=== PATIENT | male | born 1945 | race Caucasian/White ===

== ENCOUNTER 2020-02-06 08:50 | Outpatient (CLI) | payer MEDICARE, SELFPAY ==
--- NOTE | 2020-02-06 09:03 | ECG_ITS ---
NAME OF STUDY: LEXISCAN SESTAMIBI STRESS TEST INDICATION: Shortness of Breath, PROCEDURE: At the baseline, the EKG revealed atrial fibrillation with a controlled ventricular response rate. Poor R wave progression. Possible old anteroseptal myocardial infarction. Nonspecific T wave changes. Possible old inferior wall myocardial infarction. The baseline blood pressure was 168/96 mm Hg with a heart rate of 82 beats/min. Lexiscan was infused over a period of 20 seconds. A total of 0.4 milligrams of Lexiscan was infused. The stress phase was continued for a total of 5 minutes. Heart rate at the end of the stress phase was 90 with a blood pressure 127/73. The EKG at the peak infusion revealed no significant changes. Sestamibi was injected 20 seconds after the Lexiscan infusion. Blood pressure at the end of the recovery phase was 135/85 with a heart rate of 77 per minute. CONCLUSION: 1. No significant EKG changes with the LexiScan infusion 2. No LexiScan induced chest pain or cardiac arrhythmia 3. Normal blood pressure and heart rate response 4. Sestamibi/sestamibi perfusion scan pending; see separate report. Electronically Signed On 02-07-2020 10:30:04 CDT by Calixto Puri M.D. [id number]
--- NOTE | 2020-02-06 09:03 | NMCV_ITS ---
NM denzel perf SPECT r/s* [id number] Willis Sehffield Age: 74 Gender: M : 1945 Exam Date: 02/06/2020 09:03 Ordering Phys: Calixto Puri MD ([email or web address]) Technologist: WOOD Mcadams Exam Location: [facility] Indications: SHORTNESS OF BREATH STRESS TEST Please see separate stress test report [facility] for full findings IMAGE PROTOCOL Rest/Stress 1 Lexiscan Day Radiopharmaceutical Dose (mCi) Administration Site Administered by Rest: Tc-99m 10.8 IV WOOD Abreu Sestamibi Stress:Tc-99m 32.5 IV WOOD Abreu Sestamibi Rest: 06-Feb-2020 60 Discovery 630 Stress: 06-Feb-2020 30 Discovery 630 0.4mg Lexiscan. Images obtained in supine and prone position. SPECT RESULTS Technical Quality: Excellent Raw Data Analysis: Normal Image Corrections: No attenuation or motion correction applied Summed Stress Score: 24 Summed Rest Score: 9 Summed Difference Score: 16 PERFUSION FINDINGS Moderate to large area of severely decreased tracer uptake in the basal mid and apical inferior mid and apical anterior mid anterolateral, mid inferolateral, apical lateral, apical septum and LV apex. Significant reversibility was noted in these regions FUNCTIONAL RESULTS (calculated via Gated SPECT) Stress Image LV EF (%): 42 Stress EDV (mL):151 TID: 1.04 Stress ESV (mL):88 FUNCTIONAL FINDINGS: Segmental wall motion analysis revealed diffuse hypokinesia of the septum, apex, mid and apical anterior wall regions. IMPRESSIONS 1. Myocardial perfusion imaging revealing moderate to large areas of reversible defect in the anterior, inferior, anterolateral and apical regions, suggestive of ischemia in the distribution of all the 3 coronary arteries. 2. Diminished LV ejection fraction of 42%. 3. Multiple wall motion normalities as mentioned above. 4. Mildly dilated LV cavity with an end-systolic volume of 88 mL. No similar previous studies are available for comparison Dr Calixto Puri MD FACC (Electronically Signed) Final Date: 06 Feb 2020 18:53 S
[2020-02-06 09:04] VITALS: BMI 28.3
[2020-02-06] MEDS: regadenoson 0.4 Mg/5 ml Syringe IVP (10:54)
[2020-02-06 11:08] VITALS: BP 135/85; PULSE 87
== END 2020-02-06 08:51 | disposition home or self-care (01) ==
LOC: RAD 08:54
PROVIDERS: PCP Internal Medicine; Visit Provider Internal Medicine Cardiovascular Disease
DX: R06.02 Shortness of breath (principal); R06.09 Other forms of dyspnea; R05 Cough
CPT/HCPCS: 71046; 78452; 93017; A9500; J2785

== ENCOUNTER 2020-02-06 08:55 | Outpatient (CLI) | payer MEDICARE, SELFPAY ==
--- NOTE | 2020-02-06 08:59 | XRR_ITS ---
PROCEDURE INFORMATION: Exam: XR Chest, 2 Views Exam date and time: 02/06/2020 9:29 AM Age: 74 years old Clinical indication: Cough, short of breath TECHNIQUE: Imaging protocol: XR of the chest Views: 2 views. COMPARISON: CR Chest 2 views* [id number] 10/29/2013 9:43 AM FINDINGS: Lungs: Calcified pulmonary granulomas present. No pneumonia or pulmonary edema. Pleural space: No pleural effusion. No pneumothorax. Heart/Mediastinum: The heart is not enlarged when allowing for a left epicardial fat pad. Mediastinal contours are within normal limits. There are calcified hilar and mediastinal lymph nodes from prior granulomatous disease. Bones/joints: There is an S-shaped curvature of the thoracolumbar spine associated with multilevel disc degeneration. Multilevel disc degeneration and facet arthropathy in the lower cervical spine. Bilateral glenohumeral joint degeneration. XR/XR chest 2V* [id number] IMPRESSION: 1. No pneumonia or pulmonary edema. 2. Prior granulomatous disease.
== END 2020-02-06 08:56 | disposition home or self-care (01) ==
LOC: RAD 08:57
PROVIDERS: PCP Internal Medicine; Visit Provider Internal Medicine
DX: R05 Cough (principal); R06.02 Shortness of breath
CPT/HCPCS: 71046

== ENCOUNTER 2020-02-11 15:25 | Outpatient (CLI) | payer MEDICARE, SELFPAY ==
--- NOTE | 2020-02-11 15:54 | USCV_ITS ---
Willis Sheffield Age: 74 Gender: M : 1945 Exam Date: 02/11/2020 16:02 Ordering Phys: Calixto Puri MD ([email or web address]) Technologist: Aubree Zuñiga [place] [facility] [place]ication: ABNORMAL STRESS TEST BP: / HR: 64 Rhythm: Sinus Technical Quality: MEASUREMENTS (Male / Female) Normal Values 2D ECHO LV Diastolic Diameter PLAX 4.2 cm 4.2 - 5.9 / 3.9 - 5.3 cm LV Systolic Diameter PLAX 2.2 cm LV Chamber Size 2.3 cm IVS Diastolic Thickness 1.3 cm 0.6 - 1.0 / 0.6 - 0.9 cm IVS Systolic Thickness 1.7 cm LVPW Diastolic Thickness 1.9 cm 0.6 - 1.0 / 0.6 - 0.9 cm LVPW Systolic Thickness 2.5 cm RV Chamber Size 3.4 cm LVOT Diameter 2.0 cm LV Ejection Fraction 2D Teich 78.5 % LV Ejection Fraction MOD 2C 76.3 % LV Ejection Fraction 2C AL 75.7 % LA Diameter 2.9 cm LA Width 3.4 cm LA Height 6.6 cm RA Width 4.2 cm RA Height 5.3 cm Aorta at Sinotubular Diameter 2.7 cm M-MODE LV Diastolic Diameter MM 6.2 cm 4.2 - 5.9 / 3.9 - 5.3 cm LV Systolic Diameter MM 3.4 cm LV Ejection Fraction MM Teich 75.7 % IVS Diastolic Thickness MM 0.7 cm 0.6 - 1.0 / 0.6 - 0.9 cm IVS Systolic Thickness MM 0.9 cm LVPW Diastolic Thickness MM 1.1 cm 0.6 - 1.0 / 0.6 - 0.9 cm LVPW Systolic Thickness MM 1.3 cm Aortic Annulus Diameter 3.4 cm LA Ao Ratio MM 0.8 MV E Point Septal Separation 1.4 cm DOPPLER AV Peak Velocity 154.0 cm/s LVOT Peak Velocity 113.0 cm/s AV Area Cont Eq vti 2.5 cm squared AV Area Cont Eq pk 2.4 cm squared MV Area PHT 2.8 cm squared Mitral E to A Ratio 2.7 MV E' Velocity 9.0 cm/s Mitral E to MV E' Ratio 14.5 Mitral E to LV E' Lateral Ratio 12.0 Mitral E to LV E' Septal Ratio 18.5 TR Peak Velocity 262.0 cm/s TR Peak Gradient 27.5 mmHg TR Mean Velocity 247.7 cm/s TR Mean Gradient 26.9 mmHg TR Velocity Time Integral 100.1 cm TV Peak E Velocity 50.0 cm/s Right Atrial Pressure 3.0 mmHg Pulmonary Artery Systolic Pressu 30.5 mmHg PV Peak Velocity 66.0 cm/s RV Acceleration Time 0.1 s RV Ejection Time 0.3 s RV AcT/ET 0.5 FINDINGS Left Ventricle Normal left ventricular size and systolic function, EF 67 %. Mild to moderate left ventricular hypertrophy. Right Ventricle Normal right ventricular size and systolic function. Right Atrium Upper limit of normal size Left Atrium Upper limit of normal size Mitral Valve Thickened mitral valve. Mild mitral annular calcification. Mild mitral valve regurgitation. Aortic Valve Thickened aortic valve. Xgfe-ks-lgldflqc aortic valve regurgitation. Tricuspid Valve Khby-jl-pnzgmavb tricuspid valve regurgitation. Estimated pulmonary artery peak systolic pressure of 31 mmHg Pulmonic Valve Pulmonic valve not well visualized. Pericardium Normal pericardium without effusion. Aorta Normal ascending aorta dimension. CONCLUSIONS Normal left ventricular size and systolic function, EF 67 %. Mild to moderate left ventricular hypertrophy. Thickened aortic and mitral valves Mild mitral annular calcification. Mild mitral valve regurgitation. Thickened aortic valve. Vmql-oi-rhhhwqkw aortic valve regurgitation. Frpg-th-uvlzfitt tricuspid valve regurgitation. Estimated pulmonary artery peak systolic pressure of 31 mmHg There is no pericardial effusion. There are no intracardiac masses. No previous study is available for comparison. Dr Calixto Puri MD FACC (Electronically Signed) Final Date: 11 Feb 2020 17:32 S
== END 2020-02-11 15:26 | disposition home or self-care (01) ==
LOC: RAD 15:28
PROVIDERS: PCP Internal Medicine; Visit Provider Internal Medicine Cardiovascular Disease
DX: R94.39 Abnormal result of other cardiovascular function study (principal); I08.3 Combined rheumatic disorders of mitral, aortic and tricuspid valves
CPT/HCPCS: 93306

== ENCOUNTER → 2020-03-09 09:13 | Outpatient (BNVA) | payer MEDICARE, SELFPAY | PROVIDERS: PCP Internal Medicine; Visit Provider Internal Medicine Cardiovascular Disease | DX: R06.09 Other forms of dyspnea (principal); R07.9 Chest pain, unspecified; R06.02 Shortness of breath; I35.0 Nonrheumatic aortic (valve) stenosis; Z79.01 Long term (current) use of anticoagulants; I25.10 Atherosclerotic heart disease of native coronary artery without angina pectoris; G47.33 Obstructive sleep apnea (adult) (pediatric); I10 Essential (primary) hypertension; E78.2 Mixed hyperlipidemia; I48.11 Longstanding persistent atrial fibrillation | CPT/HCPCS: 80053; 85025 ==

== ENCOUNTER 2020-03-11 11:06 | Outpatient (CLI) | payer MEDICARE, SELFPAY ==
[2020-03-10 08:44] VITALS: BMI 27.7
[2020-03-11] VITALS (17 sets, daily range): BP systolic 97–152; BP diastolic 62–101; PULSE 45–75; RESP 6–20; TEMP 36.6–36.8; O2SAT 94–98
[2020-03-11] MEDS: diphenhydrAMINE 50 mg Capsule PO (06:38)
--- NOTE | 2020-03-11 07:00 | XACV_ITS ---
Ht: 170 cm Wt: 80 kg BSA: 1.97 m2 Gender: Male : 1945 Any Known Allergies: Sulfa Exam Priority: Routine Procedure(s): Procedure Description: Diagnostic procedure Procedure Description: Coronary Angiography Diagnostic Cath Status: Elective Diagnostic Findings CX has 0% stenosis. RCA has 0% stenosis. LM to pLAD: Moderate 60% stenosis, KIA: 3 flow. mLAD: Severe 90% stenosis, KIA: 3 flow. 1st Diag: Severe 90% stenosis, KIA: 3 flow. Coronary angiography shows right dominance. The left main is a medium caliber vessel which was found to have an eccentric around 60% stenosis distally. There was moderate to heavy calcification in this region. The left anterior descending artery is a medium caliber vessel which was found to have moderate to severe disease in the proximal to mid segment. Right after the first septal oil dispatcher, there was a high-grade 95% lesion in the artery. The first diagonal branch also was found to have a high-grade, around 95% lesion proximally. The first septal oil dispatcher has a high-grade ostial stenosis. The is circumflex artery is a medium caliber vessel which also was found to have around 60% ostial narrowing. The first obtuse marginal artery was found to have mild to moderate diffuse disease. The AV groove branch was found to have mild to moderate diffuse disease. The artery gives off a recurrent atrial branch proximally which also was found to have mild to moderate diffuse disease. Grade 2 dphz-js-ajvgd collaterals were noted filling up of the PDA and the PLV branch of the right coronary artery. The intermedius artery was found to be a small caliber vessel with moderate to severe ostial narrowing. The right coronary artery is a medium caliber vessel which is chronically occluded at the ostium. Heavy calcification was noted in the proximal segment of this artery. Conclusions There is severe coronary artery disease with two vessel disease. This is a 74-year-old white male with a history of coronary disease, high blood pressure, dyslipidemia and chronic atrial fibrillation, presenting with increasing shortness of breath. He had a myocardial bridge imaging, which revealed moderate to large areas of reversible defect in the anterior, inferior, anterolateral and apical regions, suggestive of three-vessel coronary disease. His LV ejection fraction based on the nuclear scan was 42%. Based on the echocardiogram, the left ventricular ejection fraction was around 67%. For further evaluation of his coronary status, cardiac catheterization was recommended. Patient underwent left catheterization with a left and right coronary angiogram today. The findings are as follows. Patient has a 60% eccentric distal left main disease. The lesion appears to involve the ostium of the LAD and the circumflex artery. There was a high-grade eccentric stenosis of around 90%, in the LAD, right after the first septal oil dispatcher. The first diagonal branch also was found to have a high-grade lesion proximally of around 90%. The right coronary artery appeared to be chronically occluded at the ostium. Mild to moderate diffuse disease was noted in the other vessels. Heavy calcification was noted in the proximal segments of all the arteries. LV gram was not performed because of technical difficulties. Based on the above angiographic findings, a surgical revascularization was thought to be the appropriate treatment option. This will be discussed the patient and family in detail and the final decision will be made afterwards. Patient is transferred to medical floor in stable condition. Recommendations Continue current medical management and risk factor modification. Diagnostic RX Recommendation: CABG Pressures Phase:Rest AO : 89 mmHg / 57 mmHg ( 67 mmHg ) @ 2:58:00 AM 75 mmHg / 55 mmHg ( 65 mmHg ) @ 3:01:00 AM 100 mmHg / 81 mmHg ( 85 mmHg ) @ 3:05:00 AM Clinical Evaluation EBL: 5mL-10mL Procedural Details Procedure Consent Obtained. Current Diagnosis : Chest Pain. Pre-Procedure Time Out. Identified patient by full name and date of as verbalized by the patient/guarantor. Does the consent match the physician's order: Yes. Accurate & Complete Informed Consent: Yes. Inpatient/Outpatient History & Physical on Chart: Yes. Visualize and Verify Site with Patient/Guarantor: N/A. Relevant Radiology Images available: Yes. Pre-op teaching completed and patient verbalized understanding. The risks, benefits, and alternatives of sedation and/or procedure were discussed by physician. The patient agrees to continue. Procedure started. [facility] Clinical Fraility Score: 3: Managing Well. Electro Optical Engineer Indications: New Onset Angina. Chest Pain Symptom Assessment: Typical Angina Symptoms. Correct patient, site and procedure confirmed by cath team. Current diagnosis: Chest Pain. PERRLA. 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 Lungs clear x 5 lobes. IV Site on Arrival: 18 gauge in the left forearm. IV Fluids: 0.9% NaCl at KVO. 0 mL infused prior to director of cardiac cath lab. Pre Procedural Pulses: bilateral dorsalis pedis was 3+. Pre Procedural Pulses: bilateral posterior tibial was 3+. Pre Procedural Pulses: bilateral radial was 3+. Oxygen started at 2liters/min via nasal canula. right groin was prepped with chloroprep then draped in the usual sterile fashion. right radial was prepped with chloroprep then draped in the usual sterile fashion. Physician notified. Baseline sample Acquired. HR: 65 BPM. Patient's family unavailable. Physician arrived. Physician scrubbed in. Immediate Pre-Procedure Time Out. Correct Patient: Yes; Correct Procedure: Yes; Correct Site: Yes; Correct Patient Position: Yes; Correct Supplies: Yes; Dried Flammable Prep: Yes; Blood Products Available: N/A;. Lidocaine 1% infiltrated to the right radial. Arterial access obtained. A 5 bulgarian Peter catheter in over wire. wire out. hand injection performed through the catheter. Inventory is TR Glidewire Angled Stiff Shaft .035 260cm. glidewire inserted through the catheter. Catheter removed over the exchange wire. A 5 bulgarian TIG catheter in over wire. Multiple views taken of left coronary artery. Catheter redirected to the RCA. Catheter removed over the exchange wire. A 5 bulgarian JR4 catheter in over wire. Catheter removed over the exchange wire. A 5 bulgarian Angled Pig catheter in over wire. Dr. Rodas called to review films. He is unavailable to come at this time. Physician review of cine films. Catheter removed over the exchange wire. A 5 bulgarian MPA2 catheter in over wire. Catheter removed over the exchange wire. Physician scrubbed out. Physician review of cine films. TR band placed. Hemostasis obtained. A TR Band was successful obtaining hemostatsis at the Right Radial artery insertion site. Post Procedure: Pulses reassessed and unchanged. PERRLA. 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 No VTE prophylaxis required. Medication's Wasted: Lidocaine 1% = 18 mL. Medication's Wasted: Nitro = 49.8 mcg. Medication's Wasted: Heparin = 5000 units. Total IV fluids: 350 mL. Contrast type used: Visipaque 320 mgI/mL, 500 mL bottle. Post-op diagnosis: Multi Vessel CAD. Complications: None. Estimated blood loss: 5mL-10mL. Procedure completed. Patient transferred by wheelchair to CPRU. Vital chart was stopped. Site: Right Radial artery Sheath Size: 6 Fr Hemostasis Method: TR Band Hemostasis Success: Successful Procedure Medications Start: 7:39 AM Stop: 7:39 AM Medication: Versed Amount: 1 mg Route: I.V. Start: 7:39 AM Stop: 7:39 AM Medication: Fentanyl Amount: 50 mcg Route: I.V. Start: 7:47 AM Stop: 7:47 AM Medication: Verapamil Amount: 5 mg Route: I.A. Start: 7:48 AM Stop: 7:48 AM Medication: Nitrogylcerin Amount: 200 mcg Route: I.A. Start: 7:48 AM Stop: 7:48 AM Medication: 0.9% Saline Amount: 250 ml Route: I.V. bolus Start: 7:59 AM Stop: 7:59 AM Medication: Heparin Amount: 5000 units Route: I.V. Start: 8:10 AM Stop: 8:10 AM Medication: Versed Amount: 1 mg Route: I.V. Start: 8:10 AM Stop: 8:10 AM Medication: Fentanyl Amount: 50 mcg Route: I.V. I, the attending physician, have reviewed and verified all procedure medications. Yes, all medications given per verbal order History/Risk Factors Hypertension: Yes Dyslipidemia: Yes Peripheral Arterial Disease (PAD): No Myocardial Infarction (IN): No Obesity: No Renal Disease: No Tobacco Use: Former Prior Interventions PCI: Yes CABG: No Valve Surgery: No Date of PCI: 02/18/2008 Report Signatures Finalized by:Dr Calixto Puri MD [facility] on 03/11/2020 9:05:15 AM
[2020-03-11 07:16] LABS: INR 1.33 (0.8-1.2)
--- NOTE | 2020-03-11 07:38 | W.PM.OPSUD ---
Surgery/Procedure H&P Update DATE OF PROCEDURE: March 11, 2020 DATE H&P PERFORMED: 02/11/20 H&P UPDATE INFORMATION: I have reviewed H&P completed within last 30 days, I have examined patient prior to procedure and No changes to prior documentation PREOP DIAGNOSIS: ASHD PLANNED PROCEDURE: Operation Date: 03/11/20 07:00 Proposed Procedures p Cardiac Catheterization(Left) - Calixto Puri MD PATIENT REASSESSED PRIOR TO SEDATION, WITH NO CHANGE NOTED: Yes PHYSICAL EXAM: alert, oriented x 3, clear to auscultation bilaterally and regular rate & rhythm AIRWAY EVAL/ANESTHESIA PLAN: normal airway, see other exam findings, ASA III, Risks, benefits & alternatives of sedation and/or procedure discussed and Patient agrees to continue as planned
--- NOTE | 2020-03-11 10:20 | PC.NURSE ---
Addendum entered by Samia Healy RN 03/11/20 10:43: Punctured site is covered with 2x2 gauze and band-aid. No Bleeding or Hematoma noted. Original Note: TR Band Removal All air is out in the TR Band. No Hematoma, swelling or bleeding noted. Radial pulse is palpable +3 on right wrist. Activity restrictions discuss to pt. Neurovascular checks monitored. VS stable and monitored.
--- NOTE | 2020-03-11 11:00 | PC.NURSE ---
Home med Pt stated he takes Hydralazine 1 and 1/2 tablet in the morning and 1 and 1/2 tablet in the evening. Pt verbalizes, Dr Puri has instructed me to take it that way. I am not able to take it in the afternoon so it made it that way. Pt stated he also takes metamucil and atorvastatin in the evening.
--- NOTE | 2020-03-11 12:00 | PC.NURSE ---
Pt password: [email or web address] Pt stated, we can release information to Katarzyna Sheffield( dgtr in law) and his only son Vignesh Sheffield.
--- NOTE | 2020-03-11 16:00 | PC.NURSE ---
Physician Rounding Dr. Watts at pt's bedside. Discuss to pt regarding the recommendation for CABG. Provided him with educational materials regarding open heart surgery and bypass. Informed pt on outpatient follow-up within this week or next week with pt's family members presence. Pt verbalizes understanding of the plan. Would like to be discharge today. Dr. Watts verbal order to inform Dr Puri that he can be discharge today and will follow-up with the pt as an outpatient. Dr Puri called via telephone and notified of the surgeon's visit with the patient.
--- NOTE | 2020-03-11 17:33 | PM.PN ---
Subjective Subjective: Interval history: Patient underwent a left heart catheterization with a left and right coronary angiogram today. He was found to have high-grade lesion of the left main, left and descending artery, first diagonal and moderate disease in the ostium of the circumflex artery. The right coronary artery was found to be totally occluded, chronic. Medications: Reviewed: Yes Medication Review Details: Current Medications Acetaminophen (Tylenol) 650 mg PO Q6H PRN PRN Reason: MILD PAIN Al Hydrox/Mg Hydrox/Simethicone (Maalox) 30 ml PO Q15M PRN PRN Reason: INDIGESTION Alprazolam (Xanax) 0.25 mg PO TID PRN PRN Reason: ANXIETY Atorvastatin Calcium (Lipitor) 20 mg PO DAILY [facility] Atropine Sulfate (Atropine) 0.5 mg IVP PRN PRN PRN Reason: Symptomatic bradycardia Digoxin (Lanoxin) 125 mcg PO DAILY [facility] Last Admin: 03/11/20 12:07 Dose: Not Given Documented by: Fentanyl (Sublimaze) 50 mcg IVP PRN PRN PRN Reason: Prior to sheath removal Hydralazine HCl (Apresoline) 50 mg PO TID [facility] Last Admin: 03/11/20 12:07 Dose: Not Given Documented by: Sodium Chloride (Sodium Chloride 0.9%) 1,000 mls @ 50 mls/hr IV .Q20H ONE Stop: 03/12/20 01:59 Last Admin: 03/11/20 06:38 Dose: Not Given Documented by: Losartan Potassium (Cozaar) 100 mg PO DAILY [facility] Last Admin: 03/11/20 11:55 Dose: Not Given Documented by: Magnesium Hydroxide (Milk Of Magnesia) 30 ml PO DAILY PRN PRN Reason: CONSTIPATION Naloxone HCl (Narcan) 0.1 mg IVP Q2M PRN PRN Reason: RESPIRATORY RATE < 8/MIN Nitroglycerin (Nitrostat) 0.4 mg SUBLINGUAL Q5M PRN PRN Reason: Chest Pain Non-Formulary Medication (Isosorbide Mononitrate) 120 mg PO DAILY [facility] Last Admin: 03/11/20 11:55 Dose: Not Given Documented by: Non-Formulary Medication (Psyllium Husk [Metamucil]) 2 tbsp PO DAILY [facility] Temazepam (Restoril) 15 mg PO BEDTIME PRN PRN Reason: INSOMNIA Vitals/I&O/Wt Last Vital Signs Temp 98.3 F 03/11/20 08:45 Pulse 51 L 03/11/20 10:45 Resp 9 L 03/11/20 10:45 BP 138/71 03/11/20 10:45 Pulse Ox 98 03/11/20 10:45 03/11/20 03/11/20 03/11/20 06:59 14:59 22:59 Intake Total 720 / 720 Output Total 300 / 300 Balance 420 / 420 Weight last 48 hrs Weight 177 lb Physical Exam Narrative: EXAM NARRATIVE: GENERAL: The patient is alert and oriented times three. Not in any acute distress. HEENT: No significant pallor, icterus or lymphadenopathy.Oral cavity: There are no mucous membrane lesions. NECK: Trachea appears to be central. No masses noted. No JVD or thyromegaly appreciated. RESPIRATORY: Chest is symmetrical. No intercostals muscle retraction or any accessory muscle activation. There is no chest wall tenderness. Breath sounds are heard bilaterally. No rales or rhonchi heard. No evidence of any consolidation. BREASTS: Deferred. HEART: The heart sounds are normal. No S3 or S4. Short systolic murmur at the base of the heart. No pericardial rub ABDOMEN: No vessel pulsations or distention. No tenderness. No organomegaly appreciated. Bowel sounds are normally heard. : Deferred. RECTAL: Deferred. LYMPHATIC: No lymphadenopathy noted in the neck or groin. EXTREMITIES: Right radial artery entry site has no hematoma or bleeding. MUSCULOSKELETAL: No acute joint deformities or swelling SKIN: There are no significant rashes or ecchymosis NEUROPSYCHIATRIC: The patient is alert and oriented x3. Appears to be in a good mood. No tremors or rigidity noted. Data Other Labs: Laboratory Last Values PT 16.90 SECONDS (10.5-13.3) H 03/11/20 06:35 INR 1.33 (0.8-1.2) H 03/11/20 06:35 A&P Assessment and plan (1) ASHD (arteriosclerotic heart disease): I reviewed and discussed the cardiac medicine data with Dr. Rodas. For further management of his condition, he requires a surgical revascularization. This was discussed with the patient and his family(daughter). Dr. Rodas is going to make arrangements for him to be seen in his office where he will be discussing in detail with the patient and family about the surgery-risk and benefits. A final decision will be made at that time. Since the patient remained stable with no chest pain, it was thought to be appropriate to discharging home today. Status: Acute (2) Hypertension: Currently normotensive. Continue on the current medication. Status: Acute Qualifiers: Hypertension type: essential hypertension Qualified Code(s): I10 - Essential (primary) hypertension (3) Hyperlipidemia: Continue on the current medications. Status: Acute Qualifiers: Hyperlipidemia type: mixed hyperlipidemia Qualified Code(s): E78.2 - Mixed hyperlipidemia (4) Atrial fibrillation: After discussions with Dr. Rodas, it was decided to put him back on the Coumadin. He will have a repeat INR next Monday. The dose of the medication will be adjusted accordingly. Status: Acute Qualifiers: Atrial fibrillation type: longstanding persistent Qualified Code(s): I48.11 - Longstanding persistent atrial fibrillation Additional A&P Information In the event of the patient developing any chest pain, unusual shortness of breath or any new symptoms, advised to contact our office. Dr. Rodas's office will be making the arrangements for him to be seen in the office next week. Attestations Medical Necessity Statement*: Discharge home today Coding Level of Care Code Acute Neuropsychology Service Director for [facility] Fwd Diagnoses ASHD (arteriosclerotic heart disease) I25.10 Hypertension I10 Hypertension type: essential hypertension Hyperlipidemia E78.2 Hyperlipidemia type: mixed hyperlipidemia Atrial fibrillation I48.11 Atrial fibrillation type: longstanding persistent
--- NOTE | 2020-03-11 19:32 | PC.NURSE ---
Discharge to home with family Instructed pt and dgtr in law Colón on his follow-up appointment with Dr Watts next . Educated pt on CABG pre-procedure diagnostic testing and what to expect before, during and after the surgery. Pt verbalizes understanding. Pt teaches back that that he will start his Coumadin tomorrow. He said, Dr Puri told me I have to restart the coumadin tomorrow. I will take the 6 mg tomorrow then the 5 mg as directed. Discharge packets and heart surgery educational materials provided to pt.
== END 2020-03-11 18:00 | disposition home or self-care (01) | DRG 68 ==
LOC: CSU 17:18 → OPCSU 03-12 06:18
PROVIDERS: PCP Internal Medicine; Visit Provider Internal Medicine Cardiovascular Disease
DX: I25.10 Atherosclerotic heart disease of native coronary artery without angina pectoris (principal); I65.21 Occlusion and stenosis of right carotid artery; I48.11 Longstanding persistent atrial fibrillation; E78.5 Hyperlipidemia, unspecified; I10 Essential (primary) hypertension; E78.2 Mixed hyperlipidemia; I48.20 Chronic atrial fibrillation, unspecified; Z87.891 Personal history of nicotine dependence
CPT/HCPCS: 12345; 36415; 85610; 93454; C1769; C1887; C1894; J1644; J2001; J2250; J3010; J3490; J7030; Q0163; Q9967

== ENCOUNTER 2020-04-08 05:00 | Inpatient (IN) | payer MEDICARE, SELFPAY ==
[2020-04-01 10:50] LABS: Basophils % 0.5 %; Eosinophils # 0.1 10^3/uL (0.0-0.8); Eosinophils % 1.3 %; Hematocrit 45.5 % (42.0-52.0); Hemoglobin 14.5 g/dL (11.7-16.6); Lymphocytes % 16.4 %; Mean Corpuscular HGB Conc 31.9 g/dL (30.0-36.0); Mean Corpuscular Hemoglobin 28.7 pg (28.0-34.0); Mean Corpuscular Volume 90.1 fL (80-94); Mean Platelet Volume 9.8 fL (7.4-10.4); Monocytes # 0.5 10^3/uL (0.2-0.9); Monocytes % 8.5 %; Neutrophils # 4.46 10^3/uL (1.8-7.7); Neutrophils % 73.1 %; Nucleated Red Blood Cells % 0 %; Platelet Count 237 10^3/cmm (130-400); Red Blood Count 5.05 10^6/uL (4.1-5.3); Red Cell Distribution Width 14.4 % (12.1-15.1); White Blood Count 6.1 10^3/uL (4.0-10.0)
[2020-04-01 10:59] LABS: INR 1.94 (0.8-1.2)
--- NOTE | 2020-04-01 11:00 | USCV_ITS ---
Willis Sheffield Age: 74 Gender: M : 1945 Exam Date: 04/01/2020 11:26 Ordering Phys: Joseph Rodas MD (Andy) ([email or web address]) Technologist: Dewayne Salinas [place]am Location[place] [facility] [place]ication: CABG RIGHT LEFT LOWER EXTREMITY Diameter Diameter (cm) (cm) 0.43 High Thigh 0.42 0.33 Mid Thigh 0.34 0.22 Above Knee 0.29 0.37 Below Knee 0.28 0.37 Mid Calf 0.39 0.26 Ankle 0.28 RIGHT LEFT Findings SMALL VEINS OLD THROMBUS ON RT GOOD VEINS ON LT Contrast material was noted in the right greater saphenous vein Conclusions 1. 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 Patent greater saphenous vein on the left side with relatively small caliber 3. The venous dimensions are as mentioned above Dr Calixto Puri MD FACC (Electronically Signed) Final Date: 02 April 2020 09:06 S
[2020-04-01 11:10] LABS: Add Urine Microscopic? NO
[2020-04-01 11:13] LABS: Bilirubin Urine Neg (NEGATIVE); Blood Urine Neg (Negative); Glucose Urine UA Norm (Normal); Ketones Urine Negative (Negative); Nitrate Urine Negative (Negative); Protein Urine Neg (Negative); Specific Gravity, Urine 1.015 (1.005-1.030); Urine Appearance Clear (CLEAR); Urine Color Yellow (Yellow); pH Urine 6.5 (5-7)
[2020-04-01 11:14] LABS: Leukocyte Esterase Urine Negative (Negative); Urobilinogen Urine Norm (Negative)
[2020-04-01 11:17] LABS: Alanine Aminotransferase 13 U/L (0-41); Alkaline Phosphatase 76 IU/L (40-130); Anion Gap 16.2 (5-19); Aspartate Amino Transferase 14 U/L (0-40); Blood Urea Nitrogen 23 mg/dL (8-23); Calcium 8.5 mg/dL (8.5-10.5); Carbon Dioxide 21 mmol/L (22-29); Chloride 103 mmol/L (98-107); Globulin 2.8 g/dL (1.3-4.6); Glucose 101 mg/dL (65-115); Osmolality Calculated 279 mOsm/kg (285-295); Potassium 4.2 mmol/L (3.5-5.1); Sodium 136 mmol/L (136-145); Thyroid Stimulating Hormone 3.77 uIU/mL (0.27-4.20); Total Bilirubin 0.6 mg/dL (0.15-1.2); Total Protein 6.8 g/dL (6.6-8.7)
[2020-04-01 11:53] LABS: Free T4 Free Thyroxine 1.11 ng/dL (0.82-1.77)
--- NOTE | 2020-04-01 12:26 | P.ANESASSM_ITS ---
Pre-Anesthetic Assessment Pre-Anesthetic Assessment: Height/Weight: Height 1.73 m Weight 80.286 kg Preop Diagnosis: Coronary artery disease Proposed Procedure: Operation Date: 04/06/20 07:00 Proposed Procedures p CABG(Not Applicable) - Joseph Rodas MD Was Beta Mark taken within 24 hours: N/A Social: Social History: No alcohol and No tobacco Exam: Pre-Anes Outpt Exam: alert, oriented x 3, clear to auscultation bilaterally and regular rate & rhythm Airway: MP: 2 Dentition: Full Pulmonary: Pulmonary: None reported CV/HEM: CV/HEM: CAD, HTN and [place] (3 Vessel CAD) : : None reported Hepatic: Hepatic: None reported GI: GI: GERD Metabolic: Metabolic: None reported Musc/skel: Musc/skel: OA/DJD Neuropsych: Neuropsych: None reported Anesthetic Plan: ASA status: 4 Anesthesia: General Other: Discussed Invasive hemodynamic monitoring including Arterial Catheter, Pulmonary Artery Catheter, and central venous access. Disc post op vent at length. PFSH Anesthesia PFSH: Medical History (Updated 03/12/20 @ 17:02 by Joseph Rodas MD) Arrhythmia ASHD (arteriosclerotic heart disease) Atrial fibrillation LIND (dyspnea on exertion) GERD (gastroesophageal reflux disease) Hyperlipidemia Hypertension Sleep apnea Pt stopped using the CPAP many years ago Surgical History H/O Spinal surgery S/P hip replacement Family History Other CAD (coronary artery disease) Stroke Social History Smoking and tobacco status: former smoker Alcohol intake: never Data Anesthesia CBC & Chem 7: 04/01/20 10:30 04/01/20 10:30 Other Labs: Laboratory Results - last 48 hr 04/01/20 04/01/20 04/01/20 10:30 10:30 10:30 WBC 6.1 RBC 5.05 Hgb 14.5 Hct 45.5 MCV 90.1 MCH 28.7 MCHC 31.9 RDW 14.4 Plt Count 237 MPV 9.8 Neut % (Auto) 73.1 Lymph % (Auto) 16.4 Cedar % (Auto) 8.5 Eos % (Auto) 1.3 Baso % (Auto) 0.5 Neut # (Auto) 4.46 Lymph # (Auto) 1.0 Cedar # (Auto) 0.5 Eos # (Auto) 0.1 Baso # (Auto) 0.0 Nucleated RBC % (auto) 0 Nucleated RBCs # 0.0 PT 22.90 H INR 1.94 H APTT 35.0 Sodium Potassium Chloride Carbon Dioxide Anion Gap BUN Creatinine Glucose Calculated Osmolality Calcium Total Bilirubin Direct Bilirubin AST ALT Alkaline Phosphatase Total Protein Albumin Globulin TSH Free T4 Urine Color Urine Appearance Urine pH Ur Specific [place] Urine Protein Urine Glucose (UA) Urine Ketones Urine Blood Urine Nitrate Urine Bilirubin Urine Urobilinogen Ur Leukocyte Esterase Blood Type O Negative Rho(D) Type Negative Antibody Screen Negative 04/01/20 04/01/20 10:30 11:00 WBC RBC Hgb Hct MCV MCH MCHC RDW Plt Count MPV Neut % (Auto) Lymph % (Auto) Cedar % (Auto) Eos % (Auto) Baso % (Auto) Neut # (Auto) Lymph # (Auto) Cedar # (Auto) Eos # (Auto) Baso # (Auto) Nucleated RBC % (auto) Nucleated RBCs # PT INR APTT Sodium 136 Potassium 4.2 Chloride 103 Carbon Dioxide 21 L Anion Gap 16.2 BUN 23 Creatinine 0.9 Glucose 101 Calculated Osmolality 279 L Calcium 8.5 Total Bilirubin 0.6 Direct Bilirubin 0.20 AST 14 ALT 13 Alkaline Phosphatase 76 Total Protein 6.8 Albumin 4.0 Globulin 2.8 TSH 3.77 Free T4 1.11 Urine Color Yellow Urine Appearance Clear Urine pH 6.5 Ur Specific [place] 1.015 Urine Protein Neg Urine Glucose (UA) Norm Urine Ketones Negative Urine Blood Neg Urine Nitrate Negative Urine Bilirubin Neg Urine Urobilinogen Norm Ur Leukocyte Esterase Negative Blood Type Rho(D) Type Antibody Screen Cardiac Studies: No Data to Display
[2020-04-02 20:05] LABS: Quest SARS-CoV-2 RNA NOT DETECTED (NOT DETECTED)
[2020-04-08] VITALS (54 sets, daily range): BP systolic 90–133; BP diastolic 30–74; PULSE 0–96; RESP 12–18; TEMP 35.8–36.9; O2SAT 97–100; BMI 26.9
[2020-04-08 05:28] LABS: Glucose Point of Care 88 mg/dL (70-110)
--- NOTE | 2020-04-08 06:01 | P.HPUD_ITS ---
Surgery/Procedure H&P Update DATE OF PROCEDURE: April 08, 2020 DATE H&P PERFORMED: 03/12/20 H&P UPDATE INFORMATION: I have reviewed H&P completed within last 30 days, I have examined patient prior to procedure and No changes to prior documentation CHANGES TO PREVIOUS DOCUMENTATION: Last warfarin dose was last April 02. Results of saphenous vein mapping are noted. We will be prepared for left radial artery harvesting if left saphenous vein is not felt to be of adequate size or quality to utilize for grafting. This was discussed with Mr. Sheffield and his [id number]. All questions concerning surgery were again carefully rev iewed and answered. Mr. Sheffield and his family are eager to proceed. PREOP DIAGNOSIS: Coronary artery disease PRIMARY INDICATION FOR PROCEDURE: Severe coronary artery disease with distal left main stenosis. Surgical revascularization has been requested by cardiology. PLANNED PROCEDURE: Operation Date: 04/08/20 07:00 Proposed Procedures p CABG(Not Applicable) - Joseph Rodas MD
[2020-04-08] MEDS: vancomycin 1,000 MG in sodium chloride 0.9% 250 ML 250 MG IV ×2 (06:26→07:00)
[2020-04-08] MEDS: heparin 5,000 unit/mL INJ 1 mL 5000 UNIT (08:53)
--- NOTE | 2020-04-08 09:04 | SUR.OPER ---
0840 PT FAMILY (LILY) NOTIFIED OF SURGERY START AND PT CONDITION
--- NOTE | 2020-04-08 10:09 | SUR.OPER ---
1009 PT ON BYPASS, ICU AND FAMILY NOTIFIED.
[2020-04-08] MEDS: sodium bicarbonate 1 mEq/mL SDV 50mL 0.7 MEQ IRRIGATION (11:01)
[2020-04-08] MEDS: heparin, porcine 1,000 unit/mL INJ 10 mL 1750 UNIT IRRIGATION (11:02)
--- NOTE | 2020-04-08 12:34 | SUR.OPER ---
1205 PT OFF BYPASS, ICU AND FAMILY NOTIFIED.
--- NOTE | 2020-04-08 13:04 | XRR_ITS ---
PROCEDURE INFORMATION: Exam: XR Chest, 1 View Exam date and time: 04/08/2020 1:50 PM Age: 74 years old Clinical indication: Condition or disease; Prior surgery; Surgery date: Post-operative (0-2 days); Surgery type: Cabg today; Additional info: Post op heart, will call when ready TECHNIQUE: Imaging protocol: XR of the chest Views: 1 view. COMPARISON: CR XR chest 2V* [id number] 02/06/2020 9:22 AM FINDINGS: Tubes, catheters and devices: Endotracheal tube is in place the tip is 22 mm above the bertha. A right side [place] catheter is in place extending to the right pulmonary artery. A central line is in place on the right side extending into the SVC. Lungs: The lungs are low in volume but appear clear A chest tube is present extending into the left lung apex. This finding is new since prior examination. Pleural space: Unremarkable. No pleural effusion. No pneumothorax. Heart/Mediastinum: There is cardiomegaly for projection. Bones/joints: Metallic sternotomy wires are present. XR/XR chest 1V portable [id number] IMPRESSION: 1. Cardiomegaly for projection. 2. [place]-Carol[place] catheter right side in pulmonary artery 3. Central line right side in the SVC 4. Endotracheal tube in place above the betrha 5. Left chest tube extending to the left lung apex 6. Status post sternotomy
[2020-04-08] MEDS: cefUROXime 1,500 MG in sodium chloride 0.9% (plus) 50 ML 100 MG IV (13:12)
--- NOTE | 2020-04-08 14:02 | ECG_ITS ---
[facility] Test Date: 2020-04-08 Pat Name: Willis Sheffield Department: Room: ICU11 Gender: Male Collar [employer] Creaser: : 1945 Requested By: Joseph Rodas Order Number: [id number] Mariely MD: Calixto Puri M.D. Measurements Intervals [place] Rate: 89 P: 61 VT: 195 QRS: -53 QRSD: 97 T: 84 QT: 411 QTc: 502 Interpretive Statements SINUS RHYTHM LOW QRS VOLTAGE IN PRECORDIAL LEADS [QRS DEFLECTION < 1.0 mV IN CHEST LEADS] INCOMPLETE RIGHT BUNDLE BRANCH BLOCK [90+ ms QRS DURATION, TERMINAL R IN V1/V2, 40+ ms S IN I/aVL/V4/V5/V6] LEFT ANTERIOR FASCICULAR BLOCK [QRS AXIS <= -45, QR IN I, RS IN II] POSSIBLE ANTERIOR MYOCARDIAL INFARCTION [30 ms Q WAVE IN V3/V4, OR R < 0.2 mV IN V4], PROBABLY OLD POSSIBLE INFERIOR MYOCARDIAL INFARCTION [30 ms Q WAVE IN II/aVF], PROBABLY OLD No previous ECG available for comparison Electronically Signed On 04-08-2020 20:40:40 CDT by Calixto Puri M.D. [id number]
[2020-04-08 15:18] LABS: Basophils % 0.2 %; Eosinophils % 0.1 %; Hematocrit 37.6 % (42.0-52.0); Hemoglobin 11.8 g/dL (11.7-16.6); INR 1.76 (0.8-1.2); Lymphocytes # 0.7 10^3/uL (0.8-4.8); Mean Corpuscular HGB Conc 31.4 g/dL (30.0-36.0); Mean Corpuscular Hemoglobin 29.4 pg (28.0-34.0); Mean Corpuscular Volume 93.8 fL (80-94); Monocytes % 7.5 %; Neutrophils # 11.88 10^3/uL (1.8-7.7); Neutrophils % 86.4 %; Nucleated Red Blood Cells % 0 %; Platelet Count 119 10^3/cmm (130-400); Red Blood Count 4.01 10^6/uL (4.1-5.3); Red Cell Distribution Width 14.6 % (12.1-15.1); White Blood Count 13.8 10^3/uL (4.0-10.0)
[2020-04-08 15:19] LABS: Partial Thromboplastin Time 32.9 SECONDS (23.9-36.7)
[2020-04-08 15:23] LABS: Anion Gap 14.7 (5-19); Blood Urea Nitrogen 16 mg/dL (8-23); Calcium 7.3 mg/dL (8.5-10.5); Carbon Dioxide 18 mmol/L (22-29); Chloride 112 mmol/L (98-107); Glucose 130 mg/dL (65-115); Magnesium 3.3 mg/dL (1.7-2.3); Osmolality Calculated 288 mOsm/kg (285-295); Potassium 4.7 mmol/L (3.5-5.1); Sodium 140 mmol/L (136-145)
[2020-04-08 15:28] LABS: ABG PCO2 35.6 mmHg (35-45); Arterial Blood Gas Hematocrit 39.3 % (42-52); Base Excess ABG -8.2 mmol/L (-2.0-2.0); Blood Gas Sample Site Not specified; Blood Gas Sample Type Arterial; Blood Gas Tidal Volume 0.65; HCO3 ABG 17.5 mmol/L (22-26); Oxygen Device VENT
[2020-04-08] MEDS: propofol 1,000 MG/100 ML INJ 2.4 MG IV (15:32)
--- NOTE | 2020-04-08 16:08 | PC.NURSE ---
Arrived from OR at 1420. Arrived intubated with dobutamine at 5mcg/kg/min, levophed at 6mcg/min, and insulin at 1unit/hr. 2 mediastinal chest tubes and 1 pleural, chest tube drainage marked at this time. Urine ouput assessed at this time. Applied wall suction. Right IJ cental line, Right side cordis with swan catheter in place, reviewed length with anesthesia reports 48cm, upon inspection catheter at 40 with poor waveform. Anesthesia advanced catheter and now sits at 45cm with good waveform. Pt arrived AV paced. Dr. Watts turned pacemaker off on arrival to unit, underlying rhythm sinus rhythm rate in 90's.
--- NOTE | 2020-04-08 16:51 | P.OP_ITS ---
Operative Report Date of procedure: April 08, 2020 Pre-op Diagnosis: Coronary artery disease with left main stenosis Post-op diagnosis: same Procedure Done: 1. Coronary artery bypass grafting x3 (1 artery and 2 veins) site to left internal mammary artery to the left anterior descending artery, reverse saphenous vein graft aorta to the diagonal artery, and reverse saphenous vein graft aorta to the obtuse marginal branch of the circumflex artery. 2. Endoscopic greater saphenous vein harvesting from the left thigh and leg 3. Right femoral arterial line placement. Pathology: none sent Surgeon: Joseph Rodas Anesthesia: General Complications: None Condition: stable Disposition: ICU Brief History: Mr. Sheffield is a 74-year-old gentleman referred to our service from Dr. Puri after undergoing evaluation for progressive shortness of breath with exertion over a several month history of becoming much more intense recently. He has no history for coronary artery disease status post left heart catheterization and stenting of the diagonal artery. This was in 2007. He has known chronic occlusion of the RCA. History of chronic atrial fibrillation. Recent nuclear stress testing revealed moderate to large area of reversible and irreversible defects. Left heart catheterization revealed a 60% left main stenosis. Severe proximal LAD stenosis of 90%. First diagonal stenosis of 90%. Circumflex vessel has 60% disease. Right coronary artery chronically occluded. Ejection fraction approximately 40 to 45%. Due to multisegment, multivessel disease including left main coronary artery stenosis, he was referred to [facility] revascularization. He underwent careful outpatient preoperative evaluation. Details the risk of surgery were frankly carefully discussed with him and his family. A proper consents have been reviewed and signed. Procedure: Particular risks of this surgery carefully reviewed with them included the possibility of , stroke, heart attack, major bleeding, infection, pneumonia, pain, organ failure, failure to benefit, early closure of the bypass grafts, prolonged hospital stay and subsequent need for further procedures. Increased risks for complications secondary to left main coronary artery disease and chronic atrial fibrillation were carefully reviewed. Mr. Sheffield and family understand these increased risks. All questions were answered and appropriate consents were reviewed and signed. Preoperative education for the patient and the family included both written and video materials. The patient and the family wished to proceed with plans for attempted surgical revascularization for severe coronary artery bypass. PROCEDURE: Preoperative evaluation was obtained from our Anesthesia colleagues and adequate IVs were confirmed. Mr. Sheffield was then taken to the Operating Room Suite where general anesthesia was induced. Appropriate invasive monitoring lines were placed, including large bore peripheral IVs, central line, [place]-Caroline catheter, Alexander catheter and associated monitoring leads. After careful positioning on the Operating Room table, he was subsequently sterilely prepped and draped. Because of concerns of saphenous vein quality, I elected to prep as well the left upper extremity for possible radial artery harvesting. Saphenous vein was harvested by endoscopic technique from the left thigh and leg. Branches were secured with ligature and clips and the vein was extracted from the tunnel without tension. It was then flushed with a Heparin and albumin solution and prepared for grafting. Vein harvest sites were irrigated, platelet poor plasma infused into the tunnel and port sites closed with 3-0 and 4-0 Vicryl Plus suture. Examination of the vein demonstrated that it was of higher quality than initially suspected from his ultrasound vein mapping. Therefore, with adequate length and quality, I elected not to harvest the left radial artery. Simultaneously with vein harvesting, a median sternotomy was created utilizing a #10 scalpel blade with hemostasis controlled with cautery. After reaching the sternal table, the sternum was divided with a reciprocating saw. Bleeding was controlled with cautery and judicious use of bone wax. Following this, the left chest wall was elevated with a Rultract retractor. The left internal mammary artery was dissected free with branches being secured with clips and cautery. The distal end was left intact. After harvesting of the mammary artery, a left pleural chest tube was then placed. The left chest wall was then lowered and moistened antibiotic-soaked laparotomy pads were placed in the wound, followed by an Ankeney retractor. The sternum was then and the pericardium opened and secured with stay sutures. After inspection, 2-0 pledgeted Ethibond sutures were placed at cannulation sites, at which time the patient was fully heparinized. Following this, the left internal mammary artery was taken down from its distal attachment, flushed with Papaverine solution, prepared for grafting and brisk flow confirmed. A soft bulldog was applied distally. Next, the heart was cannulated with a 22-[place]oc[place] aortic cannula, two-stage venous cannula and aortic root vent. The patient was subsequently placed on cardiopulmonary bypass and cooled systemically to 34 degrees. Aortic cross-clamp was then carefully placed and 4 degree Celsius cold blood cardioplegia was administered through the aortic root in antegrade fashion. Prompt diastolic arrest was obtained. Left ventricular decompression was confirmed. The heart was cooled systemically with iced saline with an insulation pad in place to protect the phrenic nerve. Throughout the cross-clamp period, at 20-30 minute intervals, antegrade blood cardioplegia was administered to maintain asystole. It was noted with antegrade cardioplegia injection, there was some left ventricular distention consistent with modest aortic insufficiency. This was handled without difficulty. We then inspected the cardiac surface and coronary anatomy. Initially, we opened up the prominent diagonal artery at 2 mm in size. Vein was anastomosed distally with running 7-0 Prolene suture and proximally to a 4 mm aortotomy with 5-0 Prolene. We then turned our attention to the lateral wall identifying the prominent obtuse marginal branch of the circumflex artery. It also was 2 mm in size. A second portion of vein was anastomosed distally in a end-to-side fashion with running 7-0 Prolene suture and proximally to a 4 mm aortotomy with 5-0 Prolene suture. With the rewarming phase of bypass continuing, the left internal mammary artery was brought through a left anterior pericardial window into the field. The LAD was opened up in its mid one-third and was approximately 2 mm in size. The DAMNO was then anastomosed to the LAD with a running 7-0 Prolene suture. It should be noted that all distal coronary anastomoses were performed over the appropriate size coronary shunt which was removed prior to securing the distal suture line. Following this, aortic cross-clamp was released and de-airing maneuvers were performed through the aortic root vent, as well as being confirmed by transesophageal echocardiography. Dobutamine at 5 mcg per kilogram per minute was administered with good chronotropic and inotropic affect. This was tapered to 3 mcg/kg/min. The heart returned to spontaneous sinus rhythm and did not require cardioversion though I elected to place in DDD mode at 80 bpm. Because of some inconsistency with the radial blood pressure tracing, I elected to place a right femoral arterial line. This was then secured to the skin with 2-0 silk suture. Arterial pressure tracing appeared to be more appropriate and consistent. After adequate recovery from the cross-clamp period and confirmation of cardiac stability, Mr. Sheffield was weaned from bypass without difficulty. Venous cannula was removed. Heparin was reversed with Protamine and confirmed by measurement of activated clotting time. The heart was then decannulated and cannulation sites were oversewn as required. Pacing wires were placed and brought through the skin and secured. Radiopaque markers were placed on the vein grafts at the level of aorta. Two mediastinal drains were placed and connected to Pleur-evac suction. The wound was carefully irrigated and hemostasis was confirmed. Ankeney retractor was removed and sponge and needle count was correct. The sternum was then reapproximated very carefully with interrupted #7 stainless steel wire with Surgicel strips used beneath the sternal table. Fascia was closed with #1 Vicryl suture with the next layers being closed with 2-0 and 3-0 suture. The skin was reapproximated carefully in a subcuticular manner. Sterile dressings were applied, followed by a vacuum-assisted dressing. He was carefully removed from the operating room table and transferred to the Intensive Care Unit. The family was then counseled as to the details of the procedure. Dr. Puri was notified of our operative findings and procedure details.
[2020-04-08] MEDS: sodium chloride 0.9% 1,000 ML 75 ML IV (17:00)
[2020-04-08] MEDS: aspirin 81 mg Chew Tablet PO (17:00)
[2020-04-08] MEDS: oxyCODONE-APAP 5-325 mg Tablet PO (17:00)
[2020-04-08] MEDS: fentaNYL 50 mcg/mL INJ 2mL IVP ×3 (17:06→22:52)
[2020-04-08] MEDS: mupirocin oint 22 gm 1 APPLIC NASAL (17:08)
[2020-04-08] MEDS: chlorhexidine gluconate 0.12% Btl 473 mL 15 ML MUCOUS MEM (17:08)
[2020-04-08 17:16] LABS: ABG PCO2 28.8 mmHg (35-45); ABG PH Result 7.38 (7.35-7.45); Arterial Blood Gas Hematocrit 39.9 % (42-52); Base Excess ABG -6.6 mmol/L (-2.0-2.0); Blood Gas Sample Type Arterial; Carboxyhemoglobin 0.6 %THgb (0.4-20.1); HCO3 ABG 17.1 mmol/L (22-26); Ionized Calcium Level - ABG 1.1 mmol/L (1.1-1.4); Oxygen Saturation ABG 99.5; Potassium Level - ABG 4.3 mmol/L (3.5-5.0)
[2020-04-08 17:17] LABS: Alveolar-Arterial Oxygen Gradi 159.7 mmHg (5-10); Blood Gas Tidal Volume 0.65; Oxygen Device VENT
--- NOTE | 2020-04-08 17:30 | PC.NURSE ---
Cardiac Rhythm Dr. Watts at bedside and informed of patient previous 5 beat run of vtach. Labs reviewed. Pt has had been sinus rhythm with rare PVC's since episode. Verbal orders received to start amiodarone drip without loading bolus dose.
[2020-04-08 17:58] LABS: Basophils % 0.2 %; Eosinophils % 0.1 %; Hemoglobin 12.3 g/dL (11.7-16.6); Lymphocytes # 0.3 10^3/uL (0.8-4.8); Lymphocytes % 2.2 %; Mean Corpuscular HGB Conc 31.5 g/dL (30.0-36.0); Mean Corpuscular Hemoglobin 29.4 pg (28.0-34.0); Mean Corpuscular Volume 93.3 fL (80-94); Mean Platelet Volume 10.1 fL (7.4-10.4); Monocytes # 0.7 10^3/uL (0.2-0.9); Neutrophils # 10.68 10^3/uL (1.8-7.7); Neutrophils % 91.1 %; Nucleated Red Blood Cells % 0 %; Platelet Count 127 10^3/cmm (130-400); Red Blood Count 4.18 10^6/uL (4.1-5.3); Red Cell Distribution Width 14.7 % (12.1-15.1); White Blood Count 11.7 10^3/uL (4.0-10.0)
[2020-04-08 18:06] LABS: Glucose Point of Care 113 mg/dL (70-110)
[2020-04-08 18:06] LABS: Glucose Point of Care 117 mg/dL (70-110)
[2020-04-08 18:06] LABS: Glucose Point of Care 116 mg/dL (70-110)
[2020-04-08 18:06] LABS: Glucose Point of Care 133 mg/dL (70-110)
[2020-04-08 18:09] LABS: Blood Urea Nitrogen 18 mg/dL (8-23); Calcium 7.9 mg/dL (8.5-10.5); Carbon Dioxide 18 mmol/L (22-29); Chloride 113 mmol/L (98-107); Glucose 145 mg/dL (65-115); Magnesium 2.7 mg/dL (1.7-2.3); Osmolality Calculated 291 mOsm/kg (285-295); Sodium 141 mmol/L (136-145)
[2020-04-08] MEDS: albumin 12.5 GM/250 ML VIAL IV ×2 (18:21→19:35)
[2020-04-08 18:55] LABS: Anion Gap 14.6 (5-19); Potassium 4.6 mmol/L (3.5-5.1)
--- NOTE | 2020-04-08 20:09 | PC.NURSE ---
Vtach 14 beat run of vtach. Pt now sinus rhythm with occasional pvc. Will continue to monitor closely.
--- NOTE | 2020-04-08 20:34 | XRR_ITS ---
PROCEDURE INFORMATION: Exam: XR Chest, 1 View Exam date and time: 04/08/2020 8:52 PM Age: 74 years old Clinical indication: Device placement; Prior surgery; Patient HX: S/P swan catheter placement check. ; Additional info: Evaluation of swan placement TECHNIQUE: Imaging protocol: XR of the chest Views: 1 view. COMPARISON: CR XR chest 1V portable [id number] 04/08/2020 1:29 PM FINDINGS: Tip of right IJ [place]-Caroline catheter projects over right ventricular outflow tract. Tip of NG tube projects over upper portion of stomach, this tube appears new from prior study. Similar position of remaining visualized support tubes. Lung volumes are somewhat low. Otherwise no focal pulmonary consolidation is demonstrated on this single frontal image. No significant obscuration of the lateral costophrenic angles is demonstrated. No significant vascular congestion is demonstrated. There is scattered pulmonary scarring bilaterally. Visualized cardiac silhouette size again appears enlarged. There are calcifications in the thoracic aorta. There are changes from median sternotomy. XR/XR chest 1V portable [id number] IMPRESSION: Tip of right IJ [place]-Caroline catheter projects over right ventricular outflow tract. Tip of NG tube projects over upper portion of stomach, this tube appears new from prior study.
[2020-04-08] MEDS: atorvastatin 40 mg Tablet 20 MG PO (21:15)
[2020-04-08 21:16] LABS: Basophils % 0.1 %; Hematocrit 35.6 % (42.0-52.0); Hemoglobin 11.4 g/dL (11.7-16.6); Lymphocytes # 0.2 10^3/uL (0.8-4.8); Lymphocytes % 2.5 %; Mean Corpuscular Volume 93.7 fL (80-94); Mean Platelet Volume 9.9 fL (7.4-10.4); Monocytes # 0.6 10^3/uL (0.2-0.9); Monocytes % 6.5 %; Neutrophils # 7.65 10^3/uL (1.8-7.7); Neutrophils % 90.3 %; Nucleated Red Blood Cells % 0 %; Platelet Count 118 10^3/cmm (130-400); Red Cell Distribution Width 14.9 % (12.1-15.1); White Blood Count 8.5 10^3/uL (4.0-10.0)
[2020-04-08 21:32] LABS: Anion Gap 13.6 (5-19); Blood Urea Nitrogen 19 mg/dL (8-23); Calcium 8.1 mg/dL (8.5-10.5); Carbon Dioxide 19 mmol/L (22-29); Chloride 114 mmol/L (98-107); Glucose 134 mg/dL (65-115); Osmolality Calculated 292 mOsm/kg (285-295); Potassium 4.6 mmol/L (3.5-5.1); Sodium 142 mmol/L (136-145)
--- NOTE | 2020-04-08 21:34 | PC.NURSE ---
Ectopy Pt continues to have multiple episodes to ectopy with multiple pvcs. Abnormal waveform on PA pressures. Nurse concerned for improper location of swan nasima. Chest xray ordered for verification and completed at this time. Measurement of swan continues to sit at 45 cm.
--- NOTE | 2020-04-08 21:50 | PC.NURSE ---
Sebastien Watts gave verbal orders to remove [place] after viewing chest xray. [place] removed without difficulty at this time. No ectopy present on removal. Catheter intact. Cordis catheter remains. CVP line set up to central line at this time.
[2020-04-08] MEDS: propofol 1,000 MG/100 ML INJ 14.5 MG IV (22:56)
--- NOTE | 2020-04-08 23:59 | PC.NURSE ---
Vtach 13 beat run of vtach then followed to sinus rhythm at this time with rate in 60's. CBC and BMP ordered at this time for lab evaluation.
[2020-04-09] VITALS (75 sets, daily range): BP systolic 101–145; BP diastolic 48–89; PULSE 68–87; RESP 8–88; TEMP 36.4–37; O2SAT 95–99
[2020-04-09] MEDS: morphine 4 mg/mL SDV 1 mL 2 MG IVP ×2 (00:06→05:16)
[2020-04-09 00:22] LABS: Hematocrit 36.1 % (42.0-52.0); Hemoglobin 11.4 g/dL (11.7-16.6); Lymphocytes # 0.2 10^3/uL (0.8-4.8); Lymphocytes % 3.1 %; Mean Corpuscular HGB Conc 31.6 g/dL (30.0-36.0); Mean Corpuscular Hemoglobin 29.5 pg (28.0-34.0); Mean Corpuscular Volume 93.3 fL (80-94); Mean Platelet Volume 10.1 fL (7.4-10.4); Monocytes # 0.5 10^3/uL (0.2-0.9); Monocytes % 6.7 %; Neutrophils # 6.93 10^3/uL (1.8-7.7); Neutrophils % 89.9 %; Nucleated Red Blood Cells % 0 %; Platelet Count 109 10^3/cmm (130-400); Red Blood Count 3.87 10^6/uL (4.1-5.3); Red Cell Distribution Width 14.9 % (12.1-15.1); White Blood Count 7.7 10^3/uL (4.0-10.0)
[2020-04-09 00:40] LABS: Anion Gap 13.5 (5-19); Blood Urea Nitrogen 19 mg/dL (8-23); Calcium 8.2 mg/dL (8.5-10.5); Carbon Dioxide 19 mmol/L (22-29); Chloride 113 mmol/L (98-107); Glucose 136 mg/dL (65-115); Osmolality Calculated 291 mOsm/kg (285-295); Potassium 4.5 mmol/L (3.5-5.1); Sodium 141 mmol/L (136-145)
[2020-04-09] MEDS: fentaNYL 50 mcg/mL INJ 2mL IVP ×6 (01:45→21:32)
[2020-04-09 04:04] LABS: ABG PCO2 38.4 mmHg (35-45); ABG PH Result 7.33 (7.35-7.45); Arterial Blood Gas Hematocrit 37.6 % (42-52); Base Excess ABG -5.4 mmol/L (-2.0-2.0); Blood Gas Allen Test Pos; Blood Gas Sample Site Radial, right; Blood Gas Sample Type Arterial; Carboxyhemoglobin 0.7 %THgb (0.4-20.1); HCO3 ABG 20.1 mmol/L (22-26); HGB O2 Sat 95.3 % (95-100); Ionized Calcium Level - ABG 1.2 mmol/L (1.1-1.4); Methemoglobin 0.9 % (0.4-1.5); Oxygen Device VENT; Oxygen Saturation ABG 96.8; Potassium Level - ABG 4.3 mmol/L (3.5-5.0); Total Hemoglobin 12.3 g/dL (14-18)
[2020-04-09 04:47] LABS: Basophils % 0.1 %; Hematocrit 37.2 % (42.0-52.0); Hemoglobin 11.3 g/dL (11.7-16.6); Lymphocytes # 0.3 10^3/uL (0.8-4.8); Lymphocytes % 3.2 %; Mean Corpuscular HGB Conc 30.4 g/dL (30.0-36.0); Mean Corpuscular Hemoglobin 28.8 pg (28.0-34.0); Mean Corpuscular Volume 94.9 fL (80-94); Mean Platelet Volume 10.5 fL (7.4-10.4); Monocytes # 0.5 10^3/uL (0.2-0.9); Monocytes % 6.3 %; Neutrophils # 7.66 10^3/uL (1.8-7.7); Neutrophils % 90.3 %; Nucleated Red Blood Cells % 0 %; Platelet Count 111 10^3/cmm (130-400); Red Blood Count 3.92 10^6/uL (4.1-5.3); Red Cell Distribution Width 15.1 % (12.1-15.1); White Blood Count 8.5 10^3/uL (4.0-10.0)
[2020-04-09 04:56] LABS: INR 1.34 (0.8-1.2)
[2020-04-09 04:57] LABS: Partial Thromboplastin Time 31.8 SECONDS (23.9-36.7)
[2020-04-09 05:28] LABS: Anion Gap 11.4 (5-19); Blood Urea Nitrogen 19 mg/dL (8-23); Calcium 8.2 mg/dL (8.5-10.5); Carbon Dioxide 20 mmol/L (22-29); Chloride 113 mmol/L (98-107); Glucose 120 mg/dL (65-115); Glucose Fasting 120 mg/dL (74-106); Magnesium 2.6 mg/dL (1.7-2.3); Osmolality Calculated 288 mOsm/kg (285-295); Potassium 4.4 mmol/L (3.5-5.1); Sodium 140 mmol/L (136-145)
--- NOTE | 2020-04-09 05:45 | P.PN_ITS ---
Subjective Subjective: Interval history: Postop day #1 status post CABG x3. Medically stable. Has had's a couple of runs of V. tach at 5-9 beats. We discontinue the PA catheter last night for concerns of irritation, though there still was a least 1 or 2 further episodes following this. Hemodynamically stable. Chest tube output for 60 cc since surgery. Currently on spontaneous ventilation at 30% with acceptable blood gas. Chest x-ray is very clear. Cardiac silhouette is stable. Following commands. Vitals/I&O/Wt Last Vital Signs Temp 97.5 F L 04/09/20 04:00 Pulse 68 04/09/20 05:30 Resp 13 04/09/20 05:30 BP 119/70 04/09/20 05:30 Pulse Ox 96 04/09/20 05:30 04/08/20 04/08/20 04/09/20 14:59 22:59 06:59 Intake Total 500 / 500 2129.455 / 2629.455 475.917 / 3105.372 Output Total 160 / 160 1365 / 1525 370 / 1895 Balance 340 / 340 764.455 / 1104.455 105.917 / 1210.372 Weight last 48 hrs Weight 178 lb 6.4 oz Weight 177 lb Physical Exam Chest: COMMONS NORMALS: normal inspection of the chest (Wound VAC dressing in place. Sternum stable) Resp: COMMON NORMALS: clear to auscultation bilaterally AUSCULTATION: clear to auscultation bilaterally Cardio: COMMON NORMALS: regular rate, regular rhythm and S1 normal heart sound present RATE: regular rate RHYTHM: regular rhythm HEART SOUNDS: S1 n ormal heart sound present and Rub heart sound present (Probably from the mediastinal drains.) PERIPHERAL PULSES: dorsalis pedis present Extremity: GENERAL: Yes edema Neuro: COMMON NORMALS: no focal motor deficits (Following commands) Urinary Catheter Management^: Coude: Cath Placed During This Visit: yes Reason for Continuing Indwelling Catheter: Accurate Measurement of Urinary Output in Critically Ill Patients Urinary Catheter Date of Insertion: 04/08/20 Urinary Catheter Time of Insertion: 07:30 Data : 04/09/20 03:52 04/09/20 03:52 Micro: Microbiology 04/08/20 14:55 Gram Stain - Final Sputum - Endotracheal Tube Aspirate A&P Assessment and plan (1) Status post coronary artery bypass with autogenous graft, three grafts: Postop day #1 status post CABG x3. Currently remaining in sinus rhythm though I do expect will probably return to his chronic A. fib soon. Plan: CBC, BMP, chest x-ray in a.m. Will continue weaning ventilator to extubation Aspirin 81 mg daily. Lipitor 20 mg nightly. We will continue amiodarone infusion for now. Status: Acute Attestations Medical Necessity Statement*: Status post coronary bypass grafting x3 postop day #1 Time Spent in Patient Care: Greater than 35 minutes Coding Level of Care Code Acute Rail Signal Worker for Chg Fwd Diagnoses Status post coronary artery bypass with autogenous graft, three grafts Z95.1
--- NOTE | 2020-04-09 06:00 | XR_ITS ---
WS: [id number] Portable AP semiupright chest, 04/09/2020 Clinical Data: Postop day #1 status post CABG Comparison: Portable chest, 04/08/2020 Findings: The endotracheal tube, oral gastric tube, mediastinal tubes, left chest tube, right [place] catheter and internal jugular venous catheter remain unchanged. The heart is not enlarged. The aor tic arch shows calcification and tortuosity. No nodules, masses or effusions are seen. . The pulmonar y vascularity is not increased. No pneumonia or pneumothorax is seen. Monitor leads are on the chest wall. 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 Midline sternotomy sutures are present. XR/XR chest 1V portable [id number] Impression: 1. Satisfactory position of multiple tubes. 2. Satisfactory postop cardiac surgery chest.
--- NOTE | 2020-04-09 06:00 | ECG_ITS ---
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 Measurements Intervals Trail Rate: 72 P: 84 NC: 213 QRS: -42 QRSD: 124 T: 59 QT: 453 QTc: 496 Interpretive Statements POSSIBLE RIGHT VENTRICULAR CONDUCTION DELAY [RSR (QR) IN V1/V2] PROBABLE LATERAL MYOCARDIAL INFARCTION [35 ms Q WAVE IN I/aVL/V5/V6], OF INDETERMINATE AGE Sinus rhythm with frequent PACs and PVCs Left axis deviation MODERATE T-WAVE ABNORMALITY, CONSIDER ANTERIOR ISCHEMIA [-0.1+ mV T WAVE IN V3/V4] Compared to ECG 04/08/2020 16:14:08 T-wave abnormality now present Possible ischemia now present Incomplete right bundle-branch block no longer present Left anterior fascicular block no longer present Myocardial infarct finding still present Electronically Signed On 04-09-2020 17:11:15 CDT by Brent Rizvi M.D. [email or web address]
[2020-04-09 06:08] LABS: Glucose Point of Care 135 mg/dL (70-110)
[2020-04-09 06:08] LABS: Glucose Point of Care 117 mg/dL (70-110)
[2020-04-09 06:08] LABS: Glucose Point of Care 116 mg/dL (70-110)
[2020-04-09 06:08] LABS: Glucose Point of Care 118 mg/dL (70-110)
[2020-04-09 06:08] LABS: Glucose Point of Care 111 mg/dL (70-110)
[2020-04-09 06:08] LABS: Glucose Point of Care 119 mg/dL (70-110)
[2020-04-09 06:09] LABS: Glucose Point of Care 121 mg/dL (70-110)
[2020-04-09 06:09] LABS: Glucose Point of Care 104 mg/dL (70-110)
[2020-04-09 06:09] LABS: Glucose Point of Care 116 mg/dL (70-110)
[2020-04-09 06:09] LABS: Glucose Point of Care 110 mg/dL (70-110)
[2020-04-09 06:09] LABS: Glucose Point of Care 104 mg/dL (70-110)
[2020-04-09 06:09] LABS: Glucose Point of Care 120 mg/dL (70-110)
[2020-04-09] MEDS: oxyCODONE-APAP 5-325 mg Tablet PO ×3 (06:21→23:47)
[2020-04-09] MEDS: propofol 1,000 MG/100 ML INJ 12 MG IV (06:43)
--- NOTE | 2020-04-09 06:55 | PC.NURSE ---
Report received from Erasto Orr. Pt remains on vent, had difficulty waking last night. He is following commands this am. He had several runs of VT, Dr aware. Gonzales incorrect placement, was removed. Pt had one more run of VT, now infrequent PVCs noted. Amiodarone at 0.5mg/min. Dobutamine restarted at mcg/kg/min on pm shift for low CI/CO. Non-invasive CO monitoring in place. Alexander patent and draining. Both art lines patent with good waveforms. Chest tubes patent and draining: Mediastinals:132ml and Pleural :85ml, both serosangiousness fluid. Plan is to get pt extubated today.Removal of femoral art line.
--- NOTE | 2020-04-09 08:00 | PC.NURSE ---
Right femoral art line removed. Cath tip intact. No redness or swelling noted at site. Pressure held until hemostasis obtained. No bleeding or hematomas noted. Bioclusive and gauze dressing applied.
--- NOTE | 2020-04-09 09:07 | PC.NURSE ---
[place] readings: SVI 30, TPR 1419, CO 4.1, CI 2.1, heart rate 69.
[2020-04-09] MEDS: aspirin 81 mg Chew Tablet PO (09:55)
[2020-04-09] MEDS: pantoprazole 40 mg SDV IVP (09:56)
[2020-04-09] MEDS: chlorhexidine gluconate 0.12% Btl 473 mL 15 ML MUCOUS MEM ×2 (09:57→17:54)
[2020-04-09] MEDS: mupirocin oint 22 gm 1 APPLIC NASAL ×2 (09:58→17:54)
[2020-04-09] MEDS: sodium chloride 0.9% 1,000 ML 75 ML IV ×2 (10:03→23:42)
[2020-04-09 12:20] LABS: ABG PCO2 36.1 mmHg (35-45); ABG PH Result 7.38 (7.35-7.45); Arterial Blood Gas Hematocrit 42.6 % (42-52); Blood Gas Allen Test Pos; Blood Gas Sample Type Arterial; Carboxyhemoglobin 0.2 %THgb (0.4-20.1); HCO3 ABG 21.5 mmol/L (22-26); HGB O2 Sat 99.2 % (95-100); Ionized Calcium Level - ABG 1.1 mmol/L (1.1-1.4); Methemoglobin 0.7 % (0.4-1.5); Potassium Level - ABG 3.9 mmol/L (3.5-5.0); Total Hemoglobin 13.9 g/dL (14-18)
[2020-04-09 12:23] LABS: ABG PCO2 40.3 mmHg (35-45); ABG PH Result 7.33 (7.35-7.45); Arterial Blood Gas Hematocrit 43.9 % (42-52); Base Excess ABG -4.4 mmol/L (-2.0-2.0); Blood Gas Allen Test Pos; Blood Gas Sample Type Arterial; Carboxyhemoglobin 0.2 %THgb (0.4-20.1); HCO3 ABG 21.3 mmol/L (22-26); HGB O2 Sat 98.6 % (95-100); Ionized Calcium Level - ABG 1.1 mmol/L (1.1-1.4); Methemoglobin 0.7 % (0.4-1.5); Oxygen Saturation ABG 99.5; Potassium Level - ABG 4.1 mmol/L (3.5-5.0); Total Hemoglobin 14.3 g/dL (14-18)
[2020-04-09 12:25] LABS: ABG PH Result 7.39 (7.35-7.45); Arterial Blood Gas Hematocrit 33.3 % (42-52); Base Excess ABG -2.6 mmol/L (-2.0-2.0); Blood Gas Allen Test Pos; Blood Gas Sample Type Arterial; Carboxyhemoglobin 0.5 %THgb (0.4-20.1); HCO3 ABG 21.9 mmol/L (22-26); HGB O2 Sat 99.4 % (95-100); Methemoglobin 0.4 % (0.4-1.5); Potassium Level - ABG 4.6 mmol/L (3.5-5.0); Total Hemoglobin 10.9 g/dL (14-18)
[2020-04-09 12:26] LABS: ABG PCO2 34.6 mmHg (35-45); ABG PH Result 7.39 (7.35-7.45); Arterial Blood Gas Hematocrit 33.6 % (42-52); Base Excess ABG -3.4 mmol/L (-2.0-2.0); Blood Gas Allen Test Pos; Blood Gas Sample Type Arterial; Carboxyhemoglobin 0.4 %THgb (0.4-20.1); HGB O2 Sat 99.1 % (95-100); Methemoglobin 0.6 % (0.4-1.5); Potassium Level - ABG 5.3 mmol/L (3.5-5.0)
[2020-04-09 12:29] LABS: ABG PCO2 35.6 mmHg (35-45); ABG PH Result 7.37 (7.35-7.45); Arterial Blood Gas Hematocrit 33.1 % (42-52); Base Excess ABG -4.5 mmol/L (-2.0-2.0); Blood Gas Allen Test Pos; Blood Gas Sample Type Arterial; Carboxyhemoglobin 0.4 %THgb (0.4-20.1); HCO3 ABG 20.3 mmol/L (22-26); HGB O2 Sat 99.1 % (95-100); Ionized Calcium Level - ABG 1.1 mmol/L (1.1-1.4); Methemoglobin 0.6 % (0.4-1.5); Potassium Level - ABG 5.3 mmol/L (3.5-5.0); Total Hemoglobin 10.8 g/dL (14-18)
[2020-04-09 12:31] LABS: ABG PCO2 34.7 mmHg (35-45); ABG PH Result 7.43 (7.35-7.45); Arterial Blood Gas Hematocrit 30.4 % (42-52); Base Excess ABG -0.8 mmol/L (-2.0-2.0); Blood Gas Allen Test Pos; Blood Gas Sample Type Arterial; Carboxyhemoglobin 0.4 %THgb (0.4-20.1); HCO3 ABG 23.2 mmol/L (22-26); HGB O2 Sat 99.2 % (95-100); Ionized Calcium Level - ABG 1.5 mmol/L (1.1-1.4); Methemoglobin 0.7 % (0.4-1.5); Potassium Level - ABG 4.9 mmol/L (3.5-5.0); Total Hemoglobin 9.9 g/dL (14-18)
[2020-04-09 12:32] LABS: ABG PCO2 39.3 mmHg (35-45); ABG PH Result 7.33 (7.35-7.45); Arterial Blood Gas Hematocrit 29.9 % (42-52); Base Excess ABG -4.9 mmol/L (-2.0-2.0); Blood Gas Allen Test Pos; Blood Gas Sample Type Arterial; Carboxyhemoglobin 0.7 %THgb (0.4-20.1); HCO3 ABG 20.7 mmol/L (22-26); HGB O2 Sat 98.2 % (95-100); Ionized Calcium Level - ABG 1.3 mmol/L (1.1-1.4); Methemoglobin 0.7 % (0.4-1.5); Oxygen Saturation ABG 99.5; Potassium Level - ABG 4.5 mmol/L (3.5-5.0); Total Hemoglobin 9.8 g/dL (14-18)
[2020-04-09 12:34] LABS: ABG PCO2 39.9 mmHg (35-45); Arterial Blood Gas Hematocrit 32.1 % (42-52); Base Excess ABG -6.2 mmol/L (-2.0-2.0); Blood Gas Allen Test Pos; Blood Gas Sample Type Arterial; Carboxyhemoglobin 0.5 %THgb (0.4-20.1); HCO3 ABG 19.8 mmol/L (22-26); HGB O2 Sat 98.2 % (95-100); Ionized Calcium Level - ABG 1.2 mmol/L (1.1-1.4); Methemoglobin 0.6 % (0.4-1.5); Oxygen Saturation ABG 99.3; Potassium Level - ABG 4.5 mmol/L (3.5-5.0); Total Hemoglobin 10.5 g/dL (14-18)
[2020-04-09 12:42] LABS: ABG PCO2 37.1 mmHg (35-45); ABG PCO2 56.9 mmHg (35-45); ABG PH Result 7.31 (7.35-7.45); Arterial Blood Gas Hematocrit 34.6 % (42-52); Arterial Blood Gas Hematocrit 39.6 % (42-52); Base Excess ABG -12.5 mmol/L (-2.0-2.0); Blood Gas Allen Test Pos; Blood Gas Sample Type Arterial; Carboxyhemoglobin 0.5 %THgb (0.4-20.1); Carboxyhemoglobin 0.6 %THgb (0.4-20.1); HCO3 ABG 17.3 mmol/L (22-26); HCO3 ABG 18.7 mmol/L (22-26); HGB O2 Sat 97.5 % (95-100); HGB O2 Sat 98.9 % (95-100); Ionized Calcium Level - ABG 1.2 mmol/L (1.1-1.4); Methemoglobin 0.4 % (0.4-1.5); Methemoglobin 0.8 % (0.4-1.5); Oxygen Saturation ABG 98.7; Oxygen Saturation ABG 99.8; Potassium Level - ABG 4.4 mmol/L (3.5-5.0); Total Hemoglobin 11.3 g/dL (14-18); Total Hemoglobin 12.9 g/dL (14-18)
[2020-04-09 12:43] LABS: ABG PH Result 7.09 (7.35-7.45)
--- NOTE | 2020-04-09 13:27 | PC.NURSE ---
Pt extubated. RT at bedside. 3lpm/NC. OG removed.
--- NOTE | 2020-04-09 16:00 | PC.NURSE ---
Right radial artline removed. Cath tip intact. No redness or swelling noted at site. Pressure held until hemostasis obtained. Bioclussive dressing applied. Dr Quintanilla'd removal.
--- NOTE | 2020-04-09 16:00 | PC.NURSE ---
PT and OT at bedside. Pt OOB with 3 assist. to chair.
--- NOTE | 2020-04-09 17:00 | PC.NURSE ---
Addendum entered by Lexus Mack RN 04/09/20 19:44: Will wait for pt to be back in the bed for Cordis removal. Original Note: Dr Rodas , in unit, checked on pt. Discussed his progress. To remove Cordis and Right wrist Art line.. To start weaning Inotrope very slowly, 0.5mcg every half hour or so.
[2020-04-09] MEDS: ondansetron 2 mg/ML SDV 2 mL 4 MG IVP (17:02)
--- NOTE | 2020-04-09 19:00 | PC.NURSE ---
Report given to YAAKOV Orr Pt extubated around 1330. Tolerating it well. With PT and OT up to chair this afternoon. Pt started eating ice chips. He did have emesis once, received Zofran, no further nausea or vomiting. Belching noted. Insulin gtt has been off most of afternoon, blood sugars have been within limit, this morning blood sugar went below low target enough to make multiplier zero Urine output barely minimal at 310ml. Chest tube output: medistinal 210ml and leural 130ml. Both more serous than sanguineness. Pt transferred back to bed this evening with 2 assist.
[2020-04-09] MEDS: FUROsemide 10 mg/mL SDV 2mL 20 MG IVP (20:39)
[2020-04-09] MEDS: atorvastatin 40 mg Tablet 20 MG PO (20:39)
--- NOTE | 2020-04-09 22:41 | PC.NURSE ---
Cordis Removed Cordis removed at this time. Pressure held for 15 minutes until hemostasis achieved. Catheter intact. Site asymptomatic. Dry sterile gauze and tegaderm placed over site.
[2020-04-10] VITALS (30 sets, daily range): BP systolic 122–172; BP diastolic 73–93; PULSE 56–72; RESP 12–23; TEMP 36.7–36.9; O2SAT 92–100
--- NOTE | 2020-04-10 01:36 | PC.NURSE ---
IS Encouraged and assisted pt with use of IS. Pt only pulling about 500ml. Will continue to work with patient. RT assisting with EZ PAP.
[2020-04-10] MEDS: fentaNYL 50 mcg/mL INJ 2mL IVP ×2 (04:13→15:34)
[2020-04-10] MEDS: ondansetron 2 mg/ML SDV 2 mL 4 MG IVP (04:13)
[2020-04-10 05:36] LABS: Basophils % 0.1 %; Hematocrit 43.2 % (42.0-52.0); Hemoglobin 13.3 g/dL (11.7-16.6); Lymphocytes # 0.5 10^3/uL (0.8-4.8); Lymphocytes % 3.3 %; Mean Corpuscular HGB Conc 30.8 g/dL (30.0-36.0); Mean Corpuscular Hemoglobin 29.6 pg (28.0-34.0); Mean Corpuscular Volume 96.2 fL (80-94); Mean Platelet Volume 10.7 fL (7.4-10.4); Monocytes # 1.3 10^3/uL (0.2-0.9); Monocytes % 8.2 %; Neutrophils # 14.38 10^3/uL (1.8-7.7); Nucleated Red Blood Cells % 0 %; Platelet Count 161 10^3/cmm (130-400); Red Blood Count 4.49 10^6/uL (4.1-5.3); Red Cell Distribution Width 15.5 % (12.1-15.1); White Blood Count 16.4 10^3/uL (4.0-10.0)
[2020-04-10 05:58] LABS: Anion Gap 12.2 (5-19); Blood Urea Nitrogen 25 mg/dL (8-23); Calcium 8.9 mg/dL (8.5-10.5); Carbon Dioxide 22 mmol/L (22-29); Chloride 111 mmol/L (98-107); Creatinine Clr Calc Pharmacy 59.5691; Glucose 95 mg/dL (65-115); Osmolality Calculated 287 mOsm/kg (285-295); Potassium 5.2 mmol/L (3.5-5.1); Sodium 140 mmol/L (136-145)
--- NOTE | 2020-04-10 06:00 | XRR_ITS ---
PROCEDURE INFORMATION: Exam: XR Chest, 1 View Exam date and time: 04/10/2020 5:44 AM Age: 74 years old Clinical indication: Condition or disease; Other: Post op day 2 cabg; Prior surgery; Surgery date: Post-operative (0-2 days); Patient HX: Follow up cabg day 2; Additional info: Postop day #2 status post cabg TECHNIQUE: Imaging protocol: XR of the chest Views: 1 view. COMPARISON: CR XR chest 1V portable [id number] 04/09/2020 5:00 AM FINDINGS: Tubes, catheters and devices: Central venous catheter via the right jugular approach with the tip projecting over the atrium. Thoracotomy tube on the left directed to the apex. Lungs: Mild basilar airspace disease on the right.Subtle airspace disease left lung base. Pleural space: Unremarkable. No pleural effusion. No pneumothorax. Heart/Mediastinum: See Bones/joints finding. Bones/joints: Prior sternotomy. Cardiomegaly. XR/XR chest 1V portable [id number] IMPRESSION: Mild basilar airspace disease on the right.Subtle airspace disease left lung base. Probable subpulmonic effusions.
--- NOTE | 2020-04-10 06:25 | P.PN_ITS ---
Subjective Subjective: Interval history: Postop day #2 status post CABG x3. Up in chair on rounds. Taken output is slightly negative. Chest tube output did worm picker over the past 24 hours just over 500 cc. H&H is stable though white count is increased to 16,000. His chest x-ray clearly is loss of lung volume since extubation and is only pulling about 500 cc on incentive spirometry and there fore needs substantial encouragement. Of also recommended therapeutic BiPAP. Heart rate under good control. Blood pressure is good. He is not requiring supplemental insulin. He still has some peripheral edema and is noted to be mildly hyperkalemic. Vitals/I&O/Wt Last Vital Signs Temp 98.2 F 04/10/20 06:00 Pulse 65 04/10/20 06:00 Resp 19 H 04/10/20 06:00 BP 135/81 04/10/20 06:00 Pulse Ox 97 04/10/20 06:00 04/09/20 04/09/20 04/10/20 14:59 22:59 06:59 Intake Total 204.0 / 204.0 233 / 437.0 1080 / 1517.0 Output Total 396 / 396 784 / 1180 547 / 1727 Balance -192.0 / -192.0 -551 / -743.0 533 / -210.0 Weight last 48 hrs Weight 180 lb 1.6 oz Weight 178 lb 6.4 oz Physical Exam Const: COMMON NORMALS: patient oriented x3 Chest: COMMONS NORMALS: normal inspection of the chest (Wound VAC dressing and support lines are in place.) Resp: COMMON NORMALS: negative for clear to auscultation bilaterally EFFORT & INSPECTION: Yes decreased respiratory effort AUSCULTATION: not clear to auscultation bilaterally and diminished lung sounds bilateral (Bases bilaterally) Extremity: GENERAL: Yes edema (Both feet and hands and perineum) Neuro: COMMON NORMALS: patient oriented x3, no focal motor deficits and no sensory deficits noted Urinary Catheter Management^: Coude: Cath Placed During This Visit: yes Reason for Continuing Indwelling Catheter: Accurate Measurement of Urinary Output in Critically Ill Patients Urinary Catheter Date of Insertion: 04/08/20 Urinary Catheter Time of Insertion: 07:30 Data : 04/10/20 05:10 04/10/20 05:10 Micro: Microbiology 04/08/20 14:55 Gram Stain - Final Sputum - Endotracheal Tube Aspirate Sputum Culture - Preliminary A&P Assessment and plan (1) Status post coronary artery bypass with autogenous graft, three grafts: Postop day #2 status post CABG x3. Postop atelectasis. Plan: Therapeutic BiPAP. We will discontinue amiodarone. Low-dose metoprolol 12.5 mg twice daily. Resume digoxin 0.125 mg daily CBC, BMP, chest x-ray in a.m. I will ask our cardiology colleagues whom are covering for Dr. Puri for their recommendations concerning rhythm control and medical management. Status: Acute Attestations Medical Necessity Statement*: Postop day #2 status post CABG Time Spent in Patient Care: 16 - 35 minutes Coding Level of Care Code Acute Supervisor Shuttle Fitting for Mikki Flores Diagnoses Status post coronary artery bypass with autogenous graft, three grafts Z95.1
[2020-04-10 06:30] LABS: Glucose Point of Care 128 mg/dL (70-110)
[2020-04-10 06:30] LABS: Glucose Point of Care 102 mg/dL (70-110)
[2020-04-10 06:30] LABS: Glucose Point of Care 113 mg/dL (70-110)
[2020-04-10 06:30] LABS: Glucose Point of Care 94 mg/dL (70-110)
[2020-04-10 06:30] LABS: Glucose Point of Care 109 mg/dL (70-110)
[2020-04-10 06:30] LABS: Glucose Point of Care 106 mg/dL (70-110)
[2020-04-10 06:30] LABS: Glucose Point of Care 113 mg/dL (70-110)
[2020-04-10 06:30] LABS: Glucose Point of Care 117 mg/dL (70-110)
[2020-04-10 06:30] LABS: Glucose Point of Care 117 mg/dL (70-110)
[2020-04-10 06:30] LABS: Glucose Point of Care 68 mg/dL (70-110)
[2020-04-10 06:30] LABS: Glucose Point of Care 121 mg/dL (70-110)
[2020-04-10 06:30] LABS: Glucose Point of Care 64 mg/dL (70-110)
[2020-04-10 06:30] LABS: Glucose Point of Care 114 mg/dL (70-110)
[2020-04-10 06:30] LABS: Glucose Point of Care 98 mg/dL (70-110)
[2020-04-10 06:30] LABS: Glucose Point of Care 94 mg/dL (70-110)
[2020-04-10 06:30] LABS: Glucose Point of Care 76 mg/dL (70-110)
[2020-04-10 06:30] LABS: Glucose Point of Care 86 mg/dL (70-110)
[2020-04-10 06:30] LABS: Glucose Point of Care 144 mg/dL (70-110)
[2020-04-10 06:30] LABS: Glucose Point of Care 72 mg/dL (70-110)
--- NOTE | 2020-04-10 06:45 | PC.NURSE ---
Report received from YAAKOV Orr. Pt sitting up in chair, looks good but tired. Cordis removed pm shift. Central line in tact and patent. Chest tube drainage: Mediastinal 170ml and Pleural 40ml. New orders for metoprolol and disgoxin to start. NS decreased to 30ml/hr. C xray shows atelectasis, needs aggressive pulm toilet, most likely cause for WBC to be 16. Urine putput 750ml. He received 20mg Lasix pm shift.
[2020-04-10] MEDS: aspirin 81 mg Chew Tablet PO (08:32)
[2020-04-10] MEDS: oxyCODONE-APAP 5-325 mg Tablet PO (08:32)
[2020-04-10] MEDS: metoprolol tartrate 25 mg Tablet 12.5 MG PO (08:33)
[2020-04-10] MEDS: digoxin 125 mcg Tablet PO (08:33)
[2020-04-10] MEDS: mupirocin oint 22 gm 1 APPLIC NASAL ×2 (08:34→19:00)
[2020-04-10] MEDS: chlorhexidine gluconate 0.12% Btl 473 mL 15 ML MUCOUS MEM ×2 (08:34→19:01)
--- NOTE | 2020-04-10 09:03 | PC.RESP ---
PT DOES NOT HAVE A QUALIFYING HX OF LUNG DISEASE AT THIS TIME.
--- NOTE | 2020-04-10 11:16 | ECG_ITS ---
[facility] Test Date: 2020-04-10 Pat Name: Willis Sheffield Department: Room: ICU11 Gender: Male Score Caller: : 1945 Requested By: Joseph Rodas Order Number: [id number] Schuster MD: Armando Song M.D. Measurements Intervals [place] Rate: 60 P: 88 PA: 214 QRS: -28 QRSD: 149 T: 65 QT: 604 QTc: 605 Interpretive Statements SINUS RHYTHM WITH FIRST DEGREE AV BLOCK INTRAVENTRICULAR CONDUCTION DELAY [130+ ms QRS DURATION] MARKED ST ELEVATION, CONSIDER ANTERIOR INJURY [MARKED ST ELEVATION W/O NORMALLY INFLECTED T WAVE IN V2-V5] ACUTE UT Compared to ECG 04/09/2020 05:22:02 no significant change Electronically Signed On 04-10-2020 20:13:36 CDT by Armando Song M.D. [id number]
--- NOTE | 2020-04-10 13:14 | P.CONIM_ITS ---
Providers/Reason For Consult Consulting Physican/Specialty*: Dr. Urban, cardiology Reason for Consult*: Multivessel CAD s/p CABG, EKG changes Attending Physician: Joseph Rodas MD Primary Care Provider: Luz Marina Guzmán MD History of Present Illness History of Present Illness Willis Sheffield is a 74 year old male who usually follows with Dr. Puri. He was first seen back in November with progressively worsening shortness of breath with exertion. He does have a past history for coronary artery disease with h/o stenting of diagonal artery back in 2007 with known chronic occlusion of the right coronary artery, chronic atrial fibrillation on warfarin. He underwent nuclear stress test that revealed moderate to large area of reversible and irreversible defects suggesting ischemia in the distribution of all 3 coronary arteries. Calculated ejection fraction approximately 42%. Left heart catheterization revealed 60% left main coronary artery stenosis, severe proximal LAD stenosis of 90%, First diagonal with 90% stenosis as well. Circumflex 60% stenosis. Right coronary artery is chronically occluded at the ostium. He underwent CABG x3 by Dr. Rodas on 04/08/20. He is post op # 3 coronary artery bypass grafting x3 (1 artery and 2 veins) site to left internal mammary artery to the left anterior descending artery, reverse saphenous vein graft aorta to the diagonal artery, and reverse saphenous vein graft aorta to the obtuse marginal branch of the circumflex artery. He had runs of NSVT and was started on amiodarone. He was started on metoprolol and digoxin and for atrial fibrillation. He is off pressors, extubated but still has good chest tube output. He had some EKG changes and hence I have been asked to assist in further managment. Review of Systems Const: Denies: fever(s) or chills ENMT: Denies: epistaxis Card: Reports: chest pain (at incision site) and swelling of feet/ankles Resp: Reports: dyspnea GI: Reports: belching; Denies: abdominal pain or hematochezia : Denies: difficulty urinating or hematuria Musc: Reports: extremity swelling Psych: Denies: anxiety or depression Mj/Lymph: Denies: petechiae or purpura Meds/Allergies Home Medications and Allergies Home Medications Medication Instructions Recorded Confirmed Last Taken Type nitroglycerin 0.4 mg sublingual 0.4 mg SUBLINGUAL Q5M PRN 11/26/19 04/01/20 Unknown History tablet psyllium husk 3.4 gram/5.4 gram 2 tbsp PO DAILY gm 11/26/19 04/01/20 03/10/20 History oral powder isosorbide mononitrate 120 mg 120 mg PO DAILY 30 Days #30 tab 02/11/20 04/08/20 04/08/20 03:30 Rx tablet,extended release 24 hr digoxin 125 mcg (0.125 mg) tablet 125 mcg PO DAILY #90 tab 02/20/20 04/08/20 04/08/20 03:30 Rx hydralazine 50 mg tablet 50 mg PO TID #270 tab 02/20/20 04/08/20 04/08/20 03:30 Rx losartan 100 mg tablet 100 mg PO DAILY #90 tab 02/20/20 04/08/20 04/07/20 Rx simvastatin 40 mg tablet 40 mg PO DAILY #90 tab 02/20/20 04/08/20 04/07/20 Rx warfarin See Rx Instructions .ROUTE .COMPLEX 03/10/20 04/03/20 03/26/20 17:00 History warfarin See Rx Instructions .ROUTE .COMPLEX 03/10/20 04/03/20 03/31/20 History Allergies Allergy/AdvReac Type Severity Reaction Status Date / Time morphine Allergy Severe ADR-Vomitin Verified 04/08/20 05:06 g Sulfa (Sulfonamide Allergy unknown Verified 04/08/20 05:06 Antibiotics) Penicillins AdvReac ADR-Nausea Verified 04/08/20 05:06 Current Medications Current Medications Generic Name Dose Route Start Last Admin Trade Name Freq PRN Reason Stop Dose Admin Aspirin 81 mg 04/09/20 09:00 04/10/20 10:35 Aspirin Ec PO Not Given DAILY WILLY Atorvastatin Calcium 20 mg 04/08/20 21:00 04/09/20 20:39 Lipitor PO 20 mg BEDTIME WILLY Administration Chlorhexidine Gluconate 15 ml 04/08/20 18:00 04/10/20 08:34 Perigard MUCOUS MEM 1 applic BID WILLY Administration Digoxin 125 mcg 04/10/20 09:00 04/10/20 08:33 Lanoxin PO 125 mcg DAILY WILLY Administration Fentanyl 50 mcg 04/08/20 14:02 04/10/20 04:13 Sublimaze IVP 50 mcg Q1H PRN Administration SEVERE PAIN Cefuroxime Sodium 1,500 mg/ 100 mls @ 200 mls/hr 04/09/20 01:00 04/10/20 01:08 Sodium Chloride IV 04/10/20 13:29 200 mls/hr Q12H WILLY Administration Protocol Albumin Human 12.5 gm in 250 mls @ 600 mls/hr 04/08/20 14:02 04/09/20 00:00 Albumin IV Infused PRN PRN Infusion For CVP < 4 or SBP< 90 Sodium Chloride 1,000 mls @ 30 mls/hr 04/08/20 14:02 04/10/20 08:19 Sodium Chloride 0.9% IV 30 mls/hr .Q24H WILLY Infusion Insulin Aspart 0 unit 04/10/20 08:00 04/10/20 08:20 Novolog SUBCUT Not Given WM&BEDTIME WILLY Protocol Metoprolol Tartrate 12.5 mg 04/10/20 07:00 04/10/20 08:33 Lopressor PO 12.5 mg BID WILLY Administration Morphine Sulfate 2 mg 04/08/20 14:02 04/09/20 05:16 Morphine IVP 2 mg Q1H PRN Administration BREAKTHROUGH PAIN Mupirocin 1 applic 04/08/20 18:00 04/10/20 08:34 Bactroban NASAL 1 applic BID WILLY Administration Ondansetron HCl 4 mg 04/08/20 14:02 04/10/20 04:13 Zofran IVP 4 mg Q6H PRN Administration NAUSEA Oxycodone/Acetaminophen 1 - 2 tab 04/08/20 14:02 04/10/20 08:32 Percocet 5-325 Mg PO 2 tab Q6H PRN Administration MILD TO MODERATE PAIN PFSH Acute PFSH: Medical History (Updated 03/12/20 @ 17:02 by Joseph Rodas MD) Arrhythmia ASHD (arteriosclerotic heart disease) Atrial fibrillation LIND (dyspnea on exertion) GERD (gastroesophageal reflux disease) Hyperlipidemia Hypertension Sleep apnea Pt stopped using the CPAP many years ago Surgical History (Updated 04/09/20 @ 05:50 by Joseph Rodas MD) H/O Spinal surgery S/P hip replacement Family History Other CAD (coronary artery disease) Stroke Social History Smoking and tobacco status: former smoker Alcohol intake: never Vitals/I&O/Wt Last Vital Signs Temp 98.5 F 04/10/20 08:00 Pulse 60 04/10/20 11:17 Resp 18 04/10/20 10:00 BP 135/77 04/10/20 10:00 Pulse Ox 99 04/10/20 10:35 04/09/20 04/10/20 04/10/20 22:59 06:59 14:59 Intake Total 233 / 437.0 1280 / 1717.0 872.88 / 872.88 Output Total 784 / 1180 707 / 1887 105 / 105 Balance -551 / -743.0 573 / -170.0 767.88 / 767.88 Weight last 48 hrs Weight 180 lb 1.6 oz Weight 178 lb 6.4 oz Physical Exam Const: COMMON NORMALS: no acute distress, patient oriented x3 and alert GENERAL APPEARANCE: cooperative, comfortable, well kempt and well hydrated HENMT: COMMON NORMALS: hearing grossly normal bilaterally and external ears normal EXTERNAL EAR: Yes external ears normal Eye: COMMON NORMALS: EOMs intact bilaterally and no scleral icterus GENERAL EYE: appearance normal, both eyes and all related structures Neck/C-Spine: COMMON NORMALS: supple and no JVD GENERAL: Yes normal visual inspection CAROTIDS: Yes normal carotid upstroke Chest: CHEST: Yes other (midline dressing from recent surgery and chest tubes in situ) Resp: EFFORT & INSPECTION: Yes symmetric chest movement AUSCULTATION: no crackles, no rales, no rhonchi, no wheezes and diminished lung sounds bilateral in the lower lung jackson Cardio: COMMON NORMALS: no JVD, regular rate, regular rhythm, S1 normal heart sound present, S2 normal heart sound present and Peripheral pulses 2+ throughout PALPATION: normal PMI RATE: regular rate RHYTHM: regular rhythm HEART SOUNDS: S1 normal heart sound present, S2 normal heart sound present and no murmurs BRUITS: no carotid bruits PERIPHERAL PULSES: Peripheral pulses 2+ throughout, radial pulses present, posterior tibial pulses present and dorsalis pedis present Extremity: GENERAL: Yes edema (1+ bilateral ) and No pallor Neuro: COMMON NORMALS: patient oriented x3 and no focal motor deficits SENSORIUM/ORIENTATION: Yes alert Psych: COMMON NORMALS: Normal thought process present and speech normal APPEARANCE: Yes well kempt SPEECH: Yes normal speech THOUGHT PROCESS: Normal thought process present Urinary Catheter Management^: Coude: Cath Placed During This Visit: yes Reason for Continuing Indwelling Catheter: Accurate Measurement of Urinary Output in Critically Ill Patients Urinary Catheter Date of Insertion: 04/08/20 Urinary Catheter Time of Insertion: 07:30 Data Micro: Micro: Microbiology 04/08/20 14:55 Gram Stain - Final Sputum - Endotrac heal Tube Aspirate Sputum Culture - F inal Imaging^: CXR: Radiologist's impression: IMPRESSION: Mild basilar airspace disease on the right.Subtle airspace disease left lung base. Probable subpulmonic effusions EKG^: EKG 1: I personally reviewed and interpreted this EKG as follows: My Interpretation: Sinus rhythm, IVCD and non specific mild ST elevation in anterior leads that does not look significantly different than previous EKG. A&P Assessment and plan (1) Status post coronary artery bypass with autogenous graft, three grafts: -continue ASA, statin and low dose metoprolol. -He is on BiPaP. Pulmonary toileting, Chest PT and incentive spirometry as per Dr. Rodas. Status: Acute (2) Hypertension: Status: Acute Qualifiers: Hypertension type: essential hypertension Qualified Code(s): I10 - Essential (primary) hypertension (3) Hyperlipidemia: Status: Acute Qualifiers: Hyperlipidemia type: mixed hyperlipidemia Qualified Code(s): E78.2 - Mixed hyperlipidemia (4) Atrial fibrillation: Currently in NSR. Status: Acute Qualifiers: Atrial fibrillation type: longstanding persistent Qualified Code(s): I48.11 - Longstanding persistent atrial fibrillation Additional A&P Information NSVT Leucocytosis Hyperkalemia Thank you for allowing me to participate in patient's care. Please feel free to call with questions or concerns. Consult Attestations Medical Necessity Statement: Needs ICU stay post CABG Coding Level of Care Code Acute Utilization Review Nurse for Chg Fwd Diagnoses Status post coronary artery bypass with autogenous graft, three grafts Z95.1 Hypertension I10 Hypertension type: essential hypertension Hyperlipidemia E78.2 Hyperlipidemia type: mixed hyperlipidemia Atrial fibrillation I48.11 Atrial fibrillation type: longstanding persistent
[2020-04-10 18:01] LABS: Glucose Point of Care 110 mg/dL (70-110)
[2020-04-10 18:01] LABS: Glucose Point of Care 108 mg/dL (70-110)
[2020-04-10 18:03] LABS: Glucose Point of Care 118 mg/dL (70-110)
[2020-04-10] MEDS: atorvastatin 40 mg Tablet 20 MG PO (20:38)
[2020-04-10 21:00] LABS: Glucose Point of Care 134 mg/dL (70-110)
[2020-04-11] VITALS (35 sets, daily range): BP systolic 115–169; BP diastolic 65–92; PULSE 54–98; RESP 13–25; TEMP 36.6–37.5; O2SAT 93–99
[2020-04-11] MEDS: fentaNYL 50 mcg/mL INJ 2mL IVP ×2 (01:02→21:34)
[2020-04-11] MEDS: sodium chloride 0.9% 1,000 ML 30 ML IV (03:15)
[2020-04-11] MEDS: morphine 4 mg/mL SDV 1 mL 2 MG IVP (03:16)
[2020-04-11 05:12] LABS: Basophils % 0.1 %; Eosinophils % 0.1 %; Hematocrit 41.6 % (42.0-52.0); Hemoglobin 12.7 g/dL (11.7-16.6); Lymphocytes # 0.7 10^3/uL (0.8-4.8); Lymphocytes % 4.7 %; Mean Corpuscular HGB Conc 30.5 g/dL (30.0-36.0); Mean Corpuscular Hemoglobin 29.1 pg (28.0-34.0); Mean Corpuscular Volume 95.2 fL (80-94); Mean Platelet Volume 10.7 fL (7.4-10.4); Monocytes # 1.2 10^3/uL (0.2-0.9); Monocytes % 8.8 %; Neutrophils # 11.74 10^3/uL (1.8-7.7); Neutrophils % 85.6 %; Nucleated Red Blood Cells % 0 %; Platelet Count 163 10^3/cmm (130-400); Red Blood Count 4.37 10^6/uL (4.1-5.3); Red Cell Distribution Width 14.8 % (12.1-15.1); White Blood Count 13.7 10^3/uL (4.0-10.0)
--- NOTE | 2020-04-11 05:14 | ECG_ITS ---
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 Measurements Intervals [place] Rate: 70 P: NV: -1 QRS: -34 QRSD: 113 T: 12 QT: 430 QTc: 465 Interpretive Statements ATRIAL FIBRILLATION LOW QRS VOLTAGE IN PRECORDIAL LEADS [QRS DEFLECTION < 1.0 mV IN CHEST LEADS] INCOMPLETE RIGHT BUNDLE BRANCH BLOCK INFERIOR MYOCARDIAL INFARCTION, PROBABLY OLD PROBABLE ANTEROSEPTAL MYOCARDIAL INFARCTION, OF INDETERMINATE AGE Compared to ECG 04/10/2020 11:14:19 Low QRS voltage now present Incomplete right bundle-branch block now present Sinus rhythm no longer present First degree AV block no longer present ST (T wave) deviation no longer present Myocardial infarct finding still present Electronically Signed On 04-12-2020 12:45:45 CDT by Bhumika Urban M.D. [email or web address]/[id number] [place]
[2020-04-11 05:27] LABS: Anion Gap 11.1 (5-19); Blood Urea Nitrogen 37 mg/dL (8-23); Calcium 9.1 mg/dL (8.5-10.5); Carbon Dioxide 23 mmol/L (22-29); Chloride 107 mmol/L (98-107); Chol HDL Ratio 2.59 mg/dL (1.0-5.00); Cholesterol 83 mg/dL (0-200); Glucose 112 mg/dL (65-115); HDL Cholesterol 32 mg/dL (60-100); LDL Cholesterol Calculated 36 mg/dL (50-129); LDL HDL Ratio 1.13 RATIO (0.00-3.22); Magnesium 2.3 mg/dL (1.7-2.3); Osmolality Calculated 280 mOsm/kg (285-295); Potassium 5.1 mmol/L (3.5-5.1); Sodium 136 mmol/L (136-145); Triglycerides 76 mg/dL (0-150)
--- NOTE | 2020-04-11 05:40 | PC.NURSE ---
Bradycardia At 0450 patient became bradycardic rate 47 upon entering room. After a minute patient had bradycardia of 37. Internal pacemaker turned on at this time. EKG obtained, pacemaker paused to obtain underlying rhythm. Showed atrial fib with bundle branch block. Pt asymptomatic at time of event. at 0545 pacemaker shut off rhythm in atrial fib with rate 50-70
--- NOTE | 2020-04-11 06:00 | XRR_ITS ---
PROCEDURE INFORMATION: Exam: XR Chest, 1 View Exam date and time: 04/11/2020 6:06 AM Age: 74 years old Clinical indication: Condition or disease; Prior surgery; Patient HX: Post op day 3 f/u for cabg; Additional info: Postop day #3 status post cabg, receiving aggressive pulmonary toilet TECHNIQUE: Imaging protocol: XR of the chest Views: 1 view. COMPARISON: CR XR chest 1V portable [id number] 04/10/2020 5:34 AM FINDINGS: Patient is rotated and lung volumes are low, limiting assessment. Mild ill-defined opacification at each lung base is most compatible with atelectasis/infiltrate with adjacent pleural effusion, again demonstrated. No significant vascular congestion is demonstrated. There is scattered pulmonary scarring bilaterally. Visualized cardiac silhouette size again appears at least moderately enlarged, accentuated by low lung volumes. There are calcifications in the thoracic aorta. There are changes from median sternotomy. There is small amount of pneumomediastinum. Similar position of the visualized support tubes. XR/XR chest 1V portable [id number] IMPRESSION: Mild ill-defined opacification at each lung base is most compatible with atelectasis/infiltrate with adjacent pleural effusion, again demonstrated. Visualized cardiac silhouette size again appears at least moderately enlarged, accentuated by low lung volumes.
--- NOTE | 2020-04-11 07:05 | PC.NURSE ---
Notified Dr. Lopez notified at this time for rhythm/rate change. Continued bradycardia after conversion to afib rate 38-60. Bundle branch block still noted. Pt asymptomatic throughout episode. BP currently 123/87 and pt denies any symptoms. Verbal orders to hold beta rahel and digoxin, any new changes to notify provider.
--- NOTE | 2020-04-11 07:58 | PC.NURSE ---
Report given to YAAKOV Toscano at this time.
[2020-04-11 08:05] LABS: Glucose Point of Care 98 mg/dL (70-110)
[2020-04-11] MEDS: oxyCODONE-APAP 5-325 mg Tablet PO ×2 (08:53→23:50)
[2020-04-11] MEDS: aspirin 81 mg EC Tablet PO (08:53)
[2020-04-11] MEDS: ondansetron 2 mg/ML SDV 2 mL 4 MG IVP (08:54)
[2020-04-11] MEDS: mupirocin oint 22 gm 1 APPLIC NASAL ×2 (08:59→18:34)
[2020-04-11] MEDS: chlorhexidine gluconate 0.12% Btl 473 mL 15 ML MUCOUS MEM ×2 (08:59→18:34)
--- NOTE | 2020-04-11 10:06 | P.PN_ITS ---
Subjective Subjective: Interval history: Patient went back into atrial fibrillation around 5 this morning. Heart rate has been ranging from 50s to 60s with occasionally dropping into 40s. Medications: Reviewed: Yes Medication Review Details: Current Medications Aspirin (Aspirin Ec) 81 mg PO DAILY [facility] Last Admin: 04/11/20 08:53 Dose: 81 mg Documented by: Atorvastatin Calcium (Lipitor) 20 mg PO BEDTIME [facility] Last Admin: 04/10/20 20:38 Dose: 20 mg Documented by: Chlorhexidine Gluconate (Perigard) 15 ml MUCOUS MEM BID [facility] Last Admin: 04/11/20 08:59 Dose: 1 applic Documented by: Dextrose (D50w) 25 ml IVP ONCE PRN; Protocol PRN Reason: hypoglycemia protocol Dextrose (D50w) 50 ml IVP PRN PRN; Protocol PRN Reason: hypoglycemia protocol Dextrose (D50w) 25 ml IVP ONCE PRN; Protocol PRN Reason: hypoglycemia protocol Dextrose (D50w) 50 ml IVP PRN PRN; Protocol PRN Reason: hypoglycemia protocol Digoxin (Lanoxin) 125 mcg PO DAILY [facility] Last Admin: 04/10/20 08:33 Dose: 125 mcg Documented by: Epinephrine (Vaponephrine) 0.5 ml INHALATION Q6H.RESPIRATORY PRN PRN Reason: Stridor Fentanyl (Sublimaze) 50 mcg IVP Q1H PRN PRN Reason: SEVERE PAIN Last Admin: 04/11/20 01:02 Dose: 50 mcg Documented by: Glucagon (Glucagen) 1 mg IM ONCE PRN; Protocol PRN Reason: Adult Acute Hypoglycemia Prot Glucagon (Glucagen) 1 mg IM ONCE PRN; Protocol PRN Reason: Adult Acute Hypoglycemia Prot. Hydralazine HCl (Apresoline) 5 mg IVP ONCE PRN PRN Reason: Systolic BP > 140 mmHg Dobutamine HCl/Dextrose (Dobutamine Drip) 500 mg in 250 mls @ 0 mls/hr IV .Q0M PRN; Protocol PRN Reason: Cardiac Output Dopamine HCl/Dextrose (Intropin Drip) 400 mg in 250 mls @ 15.054 mls/hr IV CONT PRN; Protocol PRN Reason: Hypotension Albumin Human (Albumin) 12.5 gm in 250 mls @ 600 mls/hr IV PRN PRN PRN Reason: For CVP < 4 or SBP< 90 Last Infusion: 04/09/20 00:00 Dose: Infused Documented by: Dextrose (D5w) 500 mls @ 100 mls/hr IV ONCE PRN; Protocol PRN Reason: Adult Acute Hypoglycemia Prot Norepinephrine Bitartrate 4 mg (/ Dextrose) 254 mls @ 10.583 mls/hr IV .Q24H PRN; Protocol PRN Reason: HYPOTENSION Phenylephrine HCl 25 mg/ (Sodium Chloride) 252.5 mls @ 0 mls/hr IV .Q0M PRN; Protocol PRN Reason: HYPOTENSION Nitroglycerin/Dextrose (Nitroglycerin Drip) 50 mg in 250 mls @ 0 mls/hr IV .Q0M WILLY; Protocol Sodium Nitroprusside 50 mg/ (Dextrose) 252 mls @ 0 mls/hr IV .Q0M WILLY; Protocol Labetalol HCl 300 mg/ Sodium (Chloride) 300 mls @ 30 mls/hr IV .Q10H PRN; Prot ocol PRN Reason: Systolic BP > 140 mmHg Sodium Chloride (Sodium Chloride 0.9%) 1,000 mls @ 30 mls/hr IV .Q24H [facility] Last Admin: 04/11/20 03:15 Dose: 30 mls/hr Documented by: Dextrose (D5w) 500 mls @ 100 mls/hr IV ONCE PRN; Protocol PRN Reason: Adult Acute Hypoglycemia Prot Insulin Aspart (Novolog) 0 unit SUBCUT WM&BEDTIME [facility]; Protocol Last Admin: 04/11/20 08:07 Dose: Not Given Documented by: Labetalol HCl (Trandate) 10 mg IVP Q5M PRN PRN Reason: Systolic BP >140 mmHG Metoprolol Tartrate (Lopressor) 12.5 mg PO BID [facility] Last Admin: 04/11/20 08:58 Dose: Not Given Documented by: Morphine Sulfate (Morphine) 2 mg IVP Q1H PRN PRN Reason: BREAKTHROUGH PAIN Last Admin: 04/11/20 03:16 Dose: 2 mg Documented by: Mupirocin (Bactroban) 1 applic NASAL BID [facility] Last Admin: 04/11/20 08:59 Dose: 1 applic Documented by: Naloxone HCl (Narcan) 0.1 mg IVP Q2M PRN PRN Reason: OPIATERV Ondansetron HCl (Zofran) 4 mg IVP Q6H PRN PRN Reason: NAUSEA Last Admin: 04/11/20 08:54 Dose: 4 mg Documented by: Oxycodone/Acetaminophen (Percocet 5-325 Mg) 1 - 2 tab PO Q6H PRN PRN Reason: MILD TO MODERATE PAIN Last Admin: 04/11/20 08:53 Dose: 2 tab Documented by: Vitals/I&O/Wt Last Vital Signs Temp 98.2 F 04/11/20 06:00 Pulse 61 04/11/20 10:01 Resp 18 04/11/20 08:53 BP 123/87 04/11/20 07:00 Pulse Ox 98 04/11/20 10:01 04/10/20 04/11/20 04/11/20 22:59 06:59 14:59 Intake Total 553.75 / 1426.63 Output Total 305 / 410 325 / 735 130 / 130 Balance 248.75 / 1016.63 -325 / 691.63 -130 / -130 Weight last 48 hrs Weight 181 lb 4.8 oz Weight 180 lb 1.6 oz Physical Exam Narrative: EXAM NARRATIVE: Const COMMON NORMALS: no acute distress, patient oriented x3 and alert GENERAL APPEARANCE: cooperative, comfortable, well kempt and well hydrated HENMI COMMON NORMALS: hearing grossly normal bilaterally and external ears normal EXTERNAL EAR: Yes external ears normal Eye COMMON NORMALS: EOMs intact bilaterally and no scleral icterus GENERAL EYE: appearance normal, both eyes and all related structures Neck/C-Spine COMMON NORMALS: supple and no JVD GENERAL: Yes normal visual inspection CAROTIDS: Yes normal carotid upstroke Chest CHEST: Yes other (midline dressing from recent surgery and chest tubes in situ) Resp EFFORT & INSPECTION: Yes symmetric chest movement AUSCULTATION: no crackles, no rales, no rhonchi, no wheezes and diminished lung sounds bilateral in the lower lung jackson Cardio COMMON NORMALS: no JVD, regular rate, regular rhythm, S1 normal heart sound present, S2 normal heart sound present and Peripheral pulses 2+ throughout PALPATION: normal PMI RATE: regular rate RHYTHM: regular rhythm HEART SOUNDS: S1 normal heart sound present, S2 normal heart sound present and no murmurs BRUITS: no carotid bruits PERIPHERAL PULSES: Peripheral pulses 2+ throughout, radial pulses present, posterior tibial pulses present and dorsalis pedis present Extremity GENERAL: Yes edema (1-2+ bilateral ) and No pallor Neuro COMMON NORMALS: patient oriented x3 and no focal motor deficits SENSORIUM/ORIENTATION: Yes alert Psych COMMON NORMALS: Normal thought process present and speech normal APPEARANCE: Yes well kempt SPEECH: Yes normal speech Urinary Catheter Management^: Coude: Cath Placed During This Visit: yes Reason for Continuing Indwelling Catheter: Accurate Measurement of Urinary Ou tput in Critically Ill Patients Urinary Catheter Date of Insertion: 04/08/20 Urinary Catheter Time of Insertion: 07:30 Data : 04/11/20 04:50 04/11/20 04:50 Micro: Microbiology 04/08/20 14:55 Gram Stain - Final Sputum - Endotracheal Tube Aspirate Sputum Culture - Final A&P Assessment and plan (1) Status post coronary artery bypass with autogenous graft, three grafts: -Postop day #4 status post CABG x3 -continue ASA, statin -He is on BiPaP as needed. -Continue pulmonary toileting, Chest PT and incentive spirometry -Postop care as per Dr. Rodas. -I will give him Lasix 20 mg IV x1 now he has not had much urine output overnight. May need to remove repeat Lasix 20 mg later this afternoon. -Not much output from left pleural chest tube and mediastinal chest tube with 80 ml of output. Status: Acute (2) Hypertension: Status: Acute Qualifiers: Hypertension type: essential hypertension Qualified Code(s): I10 - Essential (primary) hypertension (3) Hyperlipidemia: Status: Acute Qualifiers: Hyperlipidemia type: mixed hyperlipidemia Qualified Code(s): E78.2 - Mixed hyperlipidemia (4) Atrial fibrillation: Patient has gone back in atrial fibrillation and currently is running in 50s to 60s with occasionally heart rate dropping in high 30s to 40s. I will hold off on metoprolol and digoxin for now. Status: Acute Qualifiers: Atrial fibrillation type: longstanding persistent Qualified Code(s): I48.11 - Longstanding persistent atrial fibrillation Additional A&P Information NSVT: Has not had any NSVT's overnight. Leucocytosis: Patient continues to have leukocytosis, has gone down from 16-13.7 today. Hyperkalemia-resolved Thank you for allowing me to participate in patient's care. Please feel free to call with questions or concerns. 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
[2020-04-11] MEDS: FUROsemide 10 mg/mL SDV 2mL 20 MG IVP (10:28)
--- NOTE | 2020-04-11 11:10 | PC.NURSE ---
Dr Rodas, with Dr Urban at bedside, removed all three chest tubes xeroform and island dressings applied. Pt tolerated very well. Pace maker wires left in at this time.
--- NOTE | 2020-04-11 11:20 | P.PN_ITS ---
Subjective Subjective: Interval history: Postop day #3 status post CABG x3. He has, not surprisingly, return to atrial fibrillation rhythm this morning. Utilizing BiPAP intermittently to assist with less than ideal pulmonary toilet and respiratory effort. Vital signs are otherwise stable. Chest tube output has decreased. Still probably total body of water up and would benefit from further diuresis as has been directed by Dr. Urban. Vitals/I&O/Wt Last Vital Signs Temp 98.2 F 04/11/20 06:00 Pulse 61 04/11/20 10:01 Resp 18 04/11/20 08:53 BP 123/87 04/11/20 07:00 Pulse Ox 98 04/11/20 10:01 04/10/20 04/11/20 04/11/20 22:59 06:59 14:59 Intake Total 653.75 / 1526.63 Output Total 305 / 410 325 / 735 130 / 130 Balance 348.75 / 1116.63 -325 / 791.63 -130 / -130 Weight last 48 hrs Weight 181 lb 4.8 oz Weight 180 lb 1.6 oz Physical Exam Chest: COMMONS NORMALS: normal inspection of the chest (Wound VAC dressing and support lines are in place. Sternum stable. Mediastinal and left little drains discontinued.) Resp: COMMON NORMALS: negative for normal respiratory effort EFFORT & INSPECTION: Yes uses accessory muscles and No tracheal deviation AUSCULTATION: diminished lung sounds bilateral and vesicular breath sounds (Crackles bilaterally.) bilateral Cardio: COMMON NORMALS: negative for regular rhythm RHYTHM: abnormal rhythm and abnormal rhythm irregularly irregular HEART SOUNDS: no murmurs and no rubs Extremity: GENERAL: Yes edema (Still with 1+ peripheral edema in the hands and feet as well as perineal area, though modestly improved.) Neuro: COMMON NORMALS: no focal motor deficits and no sensory deficits noted Urinary Catheter Management^: Coude: Cath Placed During This Visit: yes Reason for Continuing Indwelling Catheter: Accurate Measurement of Urinary Output in Critically Ill Patients Urinary Catheter Date of Insertion: 04/08/20 Urinary Catheter Time of Insertion: 07:30 Data : 04/11/20 04:50 04/11/20 04:50 Micro: Microbiology 04/08/20 14:55 Gram Stain - Final Sputum - Endotracheal Tube Aspirate Sputum Culture - Final A&P Assessment and plan (1) Status post coronary artery bypass with autogenous graft, three grafts: Postop day #3 status post CABG x3. Plan: Diuresis today. Out of bed later today. Continue aggressive pulmonary toilet. I greatly appreciate the expertise, advice, and assistance of Dr. 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
--- NOTE | 2020-04-11 11:40 | PC.OT ---
OT tx attempted 2x this a.m. Nursing requested therapies be with held at 0930 secondary to low heart rate and again at 1100 secondary to physician in room removing chest tubes. OT to be attempted again later this afternoon if possible.
[2020-04-11 12:39] LABS: Glucose Point of Care 93 mg/dL (70-110)
[2020-04-11 17:56] LABS: Glucose Point of Care 124 mg/dL (70-110)
[2020-04-11] MEDS: polyethylene glycol 3350 Pkt 17 gm PO (18:33)
--- NOTE | 2020-04-11 19:24 | PC.NURSE ---
Addendum entered by Lexus Mack RN 04/11/20 19:33: Central line dressing change and hub cap done today. Dressing does not want to stick on pt's neck at that awkward angle. Went through 3 Sorb View Shield contour dressings to finally get one to cover and stick around central line. Original Note: Shift Summary: Pt has been in a-fib all day, heart rate ranging 38-92. The very bradycardiac episode have been transient. Pt denies any dizziness, shortness of breath. Pt received Lasix this morning, urine output this shift 860ml, coloring improving now yellow, was dark yellow. Chest tubes, all 3, removed by Dr Rodas prior to lunch. Decision to leave pacemaker wires in at this time. Pt stated he felt better, after the tubes removed. lung sounds clearing up. Pt able to get above 1000 on IS. Pt ambulated 1 full lap around unit with PT and walker, 3 rest periods during. Pt stated he takes 2 spoons of Metamucil at night and Miralax in the morning since his back surgery. Dr Urban called to check on his progress this evening, reported his bowel regimen, Miralax ordered daily.
[2020-04-11] MEDS: atorvastatin 40 mg Tablet 20 MG PO (20:48)
[2020-04-11 20:54] LABS: Glucose Point of Care 96 mg/dL (70-110)
--- NOTE | 2020-04-11 22:00 | PC.NURSE ---
IS Encouraged incentive spirometer, cough and deep breath. Pt pulling 1000 volumes with IS. Productive cough with clear sputum.
[2020-04-12] VITALS (25 sets, daily range): BP systolic 120–145; BP diastolic 78–90; PULSE 65–90; RESP 17–30; TEMP 36.5–36.9; O2SAT 91–96
--- NOTE | 2020-04-12 02:00 | PC.NURSE ---
Pt placed on Bipap at this time. 20/ Fio2 28%.
[2020-04-12 05:02] LABS: Basophils % 0.1 %; Eosinophils % 0.2 %; Hematocrit 42.2 % (42.0-52.0); Hemoglobin 13.2 g/dL (11.7-16.6); Lymphocytes # 0.6 10^3/uL (0.8-4.8); Lymphocytes % 4.6 %; Mean Corpuscular HGB Conc 31.3 g/dL (30.0-36.0); Mean Corpuscular Volume 92.7 fL (80-94); Mean Platelet Volume 10.5 fL (7.4-10.4); Monocytes # 0.8 10^3/uL (0.2-0.9); Monocytes % 6.2 %; Neutrophils # 10.62 10^3/uL (1.8-7.7); Neutrophils % 88.3 %; Nucleated Red Blood Cells % 0 %; Platelet Count 181 10^3/cmm (130-400); Red Blood Count 4.55 10^6/uL (4.1-5.3); Red Cell Distribution Width 14.4 % (12.1-15.1)
--- NOTE | 2020-04-12 06:00 | XRR_ITS ---
PROCEDURE INFORMATION: Exam: XR Chest, 1 View Exam date and time: 04/11/2020 11:59 PM Age: 74 years old Clinical indication: Shortness of breath; Additional info: Pod #4 status post cabg/drain removal TECHNIQUE: Imaging protocol: XR of the chest Views: 1 view. COMPARISON: CR XR chest 1V portable [id number] 04/11/2020 5:56 AM FINDINGS: Tubes, catheters and devices: Similar position of central vascular catheter tip low superior vena cava. Numerous surgical clips overlie the left axilla. Interval removal of left chest tube. Removal of mediastinal surgical drains. Lungs: Minor atelectasis right infrahilar medial lower lung. Calcified granuloma right upper lobe. Pleural space: Minimal lucency at the left lung apex difficult to distinguish small pneumothorax versus adjacent vascular calcification. Small lucency at the right lung apex. Heart/Mediastinum: Cardiomegaly. Diaphragm: Elevation right hemidiaphragm. Bones/joints: Postoperative sternotomy. Gastrointestinal tract: Moderate gaseous distention of bowel in the upper abdomen and is likely interposed adjacent to the liver in the right upper quadrant. XR/XR chest 1V portable [id number] IMPRESSION: 1. Minor atelectasis right lower lung. 2. Minimal lucency lung apices bilaterally of uncertain etiology. The areas are partially obscured by soft tissue and bone structures. Further follow-up chest is recommended to exclude minimal pneumothoraces. 3. Moderate gas distention of bowel upper abdomen.
[2020-04-12 06:05] LABS: Blood Urea Nitrogen 39 mg/dL (8-23); Calcium 8.8 mg/dL (8.5-10.5); Carbon Dioxide 22 mmol/L (22-29); Chloride 107 mmol/L (98-107); Glucose 112 mg/dL (65-115); Osmolality Calculated 280 mOsm/kg (285-295); Sodium 136 mmol/L (136-145)
[2020-04-12 08:21] LABS: Glucose Point of Care 109 mg/dL (70-110)
[2020-04-12] MEDS: polyethylene glycol 3350 Pkt 17 gm PO (09:49)
[2020-04-12] MEDS: aspirin 81 mg EC Tablet PO (09:49)
--- NOTE | 2020-04-12 10:06 | PM.PN ---
Subjective Subjective: Interval history: Postop day #4 status post CABG x3. Up in chair on rounds. He made 1 loop around the ICU having to rest only once. He looks more engaging and alert today. Chest x-ray is clear today. White count continues to decrease. H&H is stable. Potassium is now normal at 4.0. Overall he looks very good. Nurses report that he does become a bit tachycardic with activity up into the 100+ range. Currently, while sitting in a chair, heart rate is 79 and irregular with chronic A. fib. Vitals/I&O/Wt Last Vital Signs Temp 97.7 F 04/12/20 02:00 Pulse 83 04/12/20 08:42 Resp 20 H 04/12/20 08:38 BP 137/87 04/12/20 08:00 Pulse Ox 95 04/12/20 08:38 04/11/20 04/12/20 04/12/20 22:59 06:59 14:59 Intake Total 1650 / 1850 120 / 1970 Output Total 840 / 1110 160 / 1270 Balance 810 / 740 -40 / 700 Weight last 48 hrs Weight 179 lb 11.2 oz Weight 181 lb 4.8 oz Physical Exam Chest: COMMONS NORMALS: normal inspection of the chest (Chest wall is stable. Wound VAC dressing remains in position.) Resp: COMMON NORMALS: normal respiratory effort and clear to auscultation bilaterally (Improve respiratory effort and improved air movement.) AUSCULTATION: clear to auscultation bilaterally (Improve respiratory effort and improved air movement.) Cardio: COMMON NORMALS: S1 normal heart sound present and No murmurs present (Cardio) RHYTHM: abnormal rhythm irregularly irregular HEART SOUNDS: S1 normal heart sound present Extremity: GENERAL: Yes edema (With peripheral edema though slowly improving.) Urinary Catheter Management^: Coude: Cath Placed During This Visit: yes Reason for Continuing Indwelling Catheter: Accurate Measurement of Urinary Output in Critically Ill Patients Urinary Catheter Date of Insertion: 04/08/20 Urinary Catheter Time of Insertion: 07:30 Data : 04/12/20 04:31 04/12/20 04:31 A&P Assessment and plan (1) Status post coronary artery bypass with autogenous graft, three grafts: Postop day #4 status post CABG x3. He has now returned to his chronic A. fib rhythm. Overall, he has improved substantially the past 48 hours. Recommendation: I will await Dr. Urban's review though I do think it safe to resume anticoagulation with his chronic dose of warfarin. I will remove his pacing wires once he is back in bed. I have also recommended the central line be removed with peripheral IVs only. If he continues to look good tomorrow, I will remove the wound VAC dressing and consider transfer to intermediate care. I greatly appreciate Dr. Urban's expertise and oversight. Status: Acute Attestations Medical Necessity Statement*: Postop day #4 status post CABG x3, chronic A. 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
--- NOTE | 2020-04-12 10:29 | P.PN_ITS ---
Subjective Subjective: Interval history: Patient walked around the unit once today. He denies having any complaints. Chest tubes were removed yesterday. Telemetry was reviewed and patient remains in atrial fibrillation with heart rate ranging from 80s-100s. No episodes of tachycardia Medications: Reviewed: Yes Medication Review Details: Current Medications Aspirin (Aspirin Ec) 81 mg PO DAILY PENDING SALE TO [facility] Last Admin: 04/12/20 09:49 Dose: 81 mg Documented by: Atorvastatin Calcium (Lipitor) 20 mg PO BEDTIME PENDING SALE TO [facility] Last Admin: 04/11/20 20:48 Dose: 20 mg Documented by: Chlorhexidine Gluconate (Perigard) 15 ml MUCOUS MEM BID PENDING SALE TO [facility] Last Admin: 04/11/20 18:34 Dose: 1 applic Documented by: Dextrose (D50w) 25 ml IVP ONCE PRN; Protocol PRN Reason: hypoglycemia protocol Dextrose (D50w) 50 ml IVP PRN PRN; Protocol PRN Reason: hypoglycemia protocol Dextrose (D50w) 25 ml IVP ONCE PRN; Protocol PRN Reason: hypoglycemia protocol Dextrose (D50w) 50 ml IVP PRN PRN; Protocol PRN Reason: hypoglycemia protocol Digoxin (Lanoxin) 125 mcg PO DAILY PENDING SALE TO [facility] Last Admin: 04/10/20 08:33 Dose: 125 mcg Documented by: Epinephrine (Vaponephrine) 0.5 ml INHALATION Q6H.RESPIRATORY PRN PRN Reason: Stridor Fentanyl (Sublimaze) 50 mcg IVP Q1H PRN PRN Reason: SEVERE PAIN Last Admin: 04/11/20 21:34 Dose: 50 mcg Documented by: Furosemide (Lasix) 20 mg IVP ONCE ONE Stop: 04/12/20 11:08 Glucagon (Glucagen) 1 mg IM ONCE PRN; Protocol PRN Reason: Adult Acute Hypoglycemia Prot Glucagon (Glucagen) 1 mg IM ONCE PRN; Protocol PRN Reason: Adult Acute Hypoglycemia Prot. Hydralazine HCl (Apresoline) 5 mg IVP ONCE PRN PRN Reason: Systolic BP > 140 mmHg Dobutamine HCl/Dextrose (Dobutamine Drip) 500 mg in 250 mls @ 0 mls/hr IV .Q0M PRN; Protocol PRN Reason: Cardiac Output Dopamine HCl/Dextrose (Intropin Drip) 400 mg in 250 mls @ 15.054 mls/hr IV CONT PRN; Protocol PRN Reason: Hypotension Albumin Human (Albumin) 12.5 gm in 250 mls @ 600 mls/hr IV PRN PRN PRN Reason: For CVP < 4 or SBP< 90 Last Infusion: 04/09/20 00:00 Dose: Infused Documented by: Dextrose (D5w) 500 mls @ 100 mls/hr IV ONCE PRN; Protocol PRN Reason: Adult Acute Hypoglycemia Prot Norepinephrine Bitartrate 4 mg (/ Dextrose) 254 mls @ 10.583 mls/hr IV .Q24H PRN; Protocol PRN Reason: HYPOTENSION Phenylephrine HCl 25 mg/ (Sodium Chloride) 252.5 mls @ 0 mls/hr IV .Q0M PRN; Protocol PRN Reason: HYPOTENSION Nitroglycerin/Dextrose (Nitroglycerin Drip) 50 mg in 250 mls @ 0 mls/hr IV .Q0M WILLY; Protocol Sodium Nitroprusside 50 mg/ (Dextrose) 252 mls @ 0 mls/hr IV .Q0M WILLY; Protocol Labetalol HCl 300 mg/ Sodium (Chloride) 300 mls @ 30 mls/hr IV .Q10H PRN; Protocol PRN Reason: Systolic BP > 140 mmHg Sodium Chloride (Sodium Chloride 0.9%) 1,000 mls @ 30 mls/hr IV .Q24H PENDING SALE TO [facility] Last Admin: 04/12/20 03:32 Dose: Not Given Documented by: Dextrose (D5w) 500 mls @ 100 mls/hr IV ONCE PRN; Protocol PRN Reason: Adult Acute Hypoglycemia Prot Insulin Aspart (Novolog) 0 unit SUBCUT WM&BEDTIME PENDING SALE TO [facility]; Protocol Last Admin: 04/11/20 20:48 Dose: Not Given Documented by: Labetalol HCl (Trandate) 10 mg IVP Q5M PRN PRN Reason: Systolic BP >140 mmHG Metoprolol Tartrate (Lopressor) 12.5 mg PO BID PENDING SALE TO [facility] Last Admin: 04/11/20 08:58 Dose: Not Given Documented by: Morphine Sulfate (Morphine) 2 mg IVP Q1H PRN PRN Reason: BREAKTHROUGH PAIN Last Admin: 04/11/20 03:16 Dose: 2 mg Documented by: Mupirocin (Bactroban) 1 applic NASAL BID PENDING SALE TO [facility] Last Admin: 04/11/20 18:34 Dose: 1 applic Documented by: Naloxone HCl (Narcan) 0.1 mg IVP Q2M PRN PRN Reason: OPIATERV Ondansetron HCl (Zofran) 4 mg IVP Q6H PRN PRN Reason: NAUSEA Last Admin: 04/11/20 08:54 Dose: 4 mg Documented by: Oxycodone/Acetaminophen (Percocet 5-325 Mg) 1 - 2 tab PO Q6H PRN PRN Reason: MILD TO MODERATE PAIN Last Admin: 04/11/20 23:50 Dose: 2 tab Documented by: Polyethylene Glycol (Miralax) 17 gm PO DAILY PENDING SALE TO [facility] Last Admin: 04/12/20 09:49 Dose: 17 gm Documented by: Warfarin Sodium (Coumadin) 5 mg PO DAILY@1400 PENDING SALE TO [facility] Vitals/I&O/Wt Last Vital Signs Temp 97.7 F 04/12/20 02:00 Pulse 83 04/12/20 08:42 Resp 20 H 04/12/20 08:38 BP 137/87 04/12/20 08:00 Pulse Ox 95 04/12/20 08:38 04/11/20 04/12/20 04/12/20 22:59 06:59 14:59 Intake Total 1650 / 1850 120 / 1970 Output Total 840 / 1110 160 / 1270 Balance 810 / 740 -40 / 700 Weight last 48 hrs Weight 179 lb 11.2 oz Weight 181 lb 4.8 oz Physical Exam Narrative: EXAM NARRATIVE: COMMON NORMALS: no acute distress, patient oriented x3 and alert GENERAL APPEARANCE: cooperative, comfortable, well kempt and well hydrated [facility] COMMON NORMALS: hearing grossly normal bilaterally and external ears normal EXTERNAL EAR: Yes external ears normal Eye COMMON NORMALS: EOMs intact bilaterally and no scleral icterus GENERAL EYE: appearance normal, both eyes and all related structures Neck/C-Spine COMMON NORMALS: supple, right IJ central in situ GENERAL: Yes normal visual inspection CAROTIDS: Yes normal carotid upstroke Chest CHEST: Yes other (midline dressing from recent surgery) Resp EFFORT & INSPECTION: Yes symmetric chest movement AUSCULTATION: no crackles, no rales, no rhonchi, no wheezes and diminished lung sounds bilateral in the lower lung jackson Cardio COMMON NORMALS: no JVD appreciated, irregular, peripheral pulses 2+ throughout HEART SOUNDS: No murmur rubs or gallops appreciated PERIPHERAL PULSES: Peripheral pulses 2+ throughout, radial pulses present, post erior tibial pulses present and dorsalis pedis present Extremity GENERAL: Yes edema (1+ bilateral, L>R ) and No pallor Neuro COMMON NORMALS: patient oriented x3 and no focal motor deficits SENSORIUM/ORIENTATION: Yes alert Psych COMMON NORMALS: Normal thought process present and speech normal SPEECH: Yes normal speech Urinary Catheter Management^: Coude: Cath Placed During This Visit: yes Reason for Continuing Indwelling Catheter: Accurate Measurement of Urinary Output in Critically Ill Patients Urinary Catheter Date of Insertion: 04/08/20 Urinary Catheter Time of Insertion: 07:30 Data : 04/12/20 04:31 04/12/20 04:31 A&P Assessment and plan (1) Status post coronary artery bypass with autogenous graft, three grafts: -Postop day #4 status post CABG x3 -continue ASA, statin -He is on BiPaP as needed. -Continue pulmonary toileting, Chest PT and incentive spirometry -Postop care as per Dr. Rodas. -I will give him Lasix 20 mg IV x1 now Status: Acute (2) Hypertension: Status: Acute Qualifiers: Hypertension type: essential hypertension Qualified Code(s): I10 - Essential (primary) hypertension (3) Hyperlipidemia: Status: Acute Qualifiers: Hyperlipidemia type: mixed hyperlipidemia Qualified Code(s): E78.2 - Mixed hyperlipidemia (4) Atrial fibrillation: Patient has gone back in atrial fibrillation and heart rate is back in 80s to 100s. -I will restart metoprolol 12.5 mg twice a day. -Continue to hold off on digoxin. -Restart on home dose warfarin. Status: Acute Qualifiers: Atrial fibrillation type: longstanding persistent Qualified Code(s): I48.11 - Longstanding persistent atrial fibrillation Additional A&P Information NSVT: Has not had any NSVT's overnight. Leucocytosis: Patient continues to have leukocytosis, is trending down. Hyperkalemia-resolved Thank you for allowing me to participate in patient's care. Please feel free to call with questions or concerns. 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
[2020-04-12 12:05] LABS: Glucose Point of Care 102 mg/dL (70-110)
[2020-04-12] MEDS: warfarin 5 mg Tablet PO (14:03)
[2020-04-12] MEDS: metoprolol tartrate 25 mg Tablet 12.5 MG PO (14:05)
[2020-04-12] MEDS: FUROsemide 10 mg/mL SDV 2mL 20 MG IVP (14:06)
--- NOTE | 2020-04-12 19:00 | PC.NURSE ---
Received report from YAAKOV Edmondson. Patient is resting comfortably. Vital signs are stable. Patient is requesting to get up to bedside commode. Assisted with the help of YAAKOV Edmondson. Patient ambulated well to bedside commode and had moderate, loose BM. Patient now resting back in bed. Bed in lowest position, call light in reach. Patient has no concerns at this time.
[2020-04-12 19:38] LABS: Glucose Point of Care 93 mg/dL (70-110)
[2020-04-12 21:17] LABS: Glucose Point of Care 108 mg/dL (70-110)
[2020-04-13] VITALS (21 sets, daily range): BP systolic 99–155; BP diastolic 68–113; PULSE 62–107; RESP 16–31; TEMP 36.4–37.2; O2SAT 91–98
[2020-04-13] MEDS: atorvastatin 40 mg Tablet 20 MG PO ×2 (05:12→20:56)
[2020-04-13 05:21] LABS: Basophils % 0.2 %; Eosinophils # 0.1 10^3/uL (0.0-0.8); Eosinophils % 1.1 %; Hematocrit 45.5 % (42.0-52.0); Hemoglobin 14.8 g/dL (11.7-16.6); Lymphocytes # 0.9 10^3/uL (0.8-4.8); Lymphocytes % 8.2 %; Mean Corpuscular HGB Conc 32.5 g/dL (30.0-36.0); Mean Corpuscular Hemoglobin 29.9 pg (28.0-34.0); Mean Corpuscular Volume 91.9 fL (80-94); Mean Platelet Volume 10.3 fL (7.4-10.4); Monocytes # 0.8 10^3/uL (0.2-0.9); Monocytes % 7.5 %; Neutrophils # 8.96 10^3/uL (1.8-7.7); Neutrophils % 82.4 %; Nucleated Red Blood Cells % 0 %; Platelet Count 229 10^3/cmm (130-400); Red Blood Count 4.95 10^6/uL (4.1-5.3); Red Cell Distribution Width 14.1 % (12.1-15.1); White Blood Count 10.9 10^3/uL (4.0-10.0)
[2020-04-13 05:34] LABS: INR 1.12 (0.8-1.2)
[2020-04-13 05:44] LABS: Blood Urea Nitrogen 39 mg/dL (8-23); Calcium 8.2 mg/dL (8.5-10.5); Carbon Dioxide 23 mmol/L (22-29); Chloride 104 mmol/L (98-107); Glucose 102 mg/dL (65-115); Osmolality Calculated 284 mOsm/kg (285-295); Sodium 138 mmol/L (136-145)
[2020-04-13 05:46] LABS: Anion Gap 15.5 (5-19); Potassium 4.5 mmol/L (3.5-5.1)
--- NOTE | 2020-04-13 05:55 | PC.NURSE ---
SHIFT SUMMARY No acute events over night. Patient rested well and vital signs remained stable. Patient had two loose stools and reports feeling better after having bowel movement. Patient rated pain 0/10 all night. Up to chair now. Call light in place.
--- NOTE | 2020-04-13 06:33 | PM.PN ---
Subjective Subjective: Interval history: Postop day #5 status post CABG x3. Up in chair on rounds. Had good bowel movement last night. No complaints this morning. Continues in chronic A. fib with controlled ventricular response. Metoprolol 12.5 mg twice daily initiated by Dr. Urban yesterday. Coumadin, home dosing reinitiated as well. Vitals/I&O/Wt Last Vital Signs Temp 98.5 F 04/12/20 18:30 Pulse 76 04/13/20 04:00 Resp 19 H 04/13/20 04:00 BP 132/88 04/13/20 04:00 Pulse Ox 95 04/13/20 04:00 04/12/20 04/12/20 04/13/20 14:59 22:59 06:59 Intake Total 90 / 90 180 / 270 Output Total 225 / 225 850 / 1075 450 / 1525 Balance -135 / -135 -670 / -805 -450 / -1255 Weight last 48 hrs Weight 179 lb 11.2 oz Physical Exam Chest: COMMONS NORMALS: normal inspection of the chest (Chest wall stable. Wound VAC dressing removed. Incision line clean, dry, and intact. New dressings applied.) and normal palpation of entire chest wall Resp: COMMON NORMALS: normal respiratory effort, No retractions, No use of accessory muscles and clear to auscultation bilaterally EFFORT & INSPECTION: Yes able to speak in complete sentences AUSCULTATION: clear to auscultation bilaterally Cardio: COMMON NORMALS: S1 normal heart sound present, No gallops present (Cardio) and No murmurs present (Cardio) RHYTHM: abnormal rhythm irregularly irregular HEART SOUNDS: S1 normal heart sound present Extremity: GENERAL: Yes edema (Peripheral edema continues to improve) Urinary Catheter Management^: Coude: Cath Placed During This Visit: yes Reason for Continuing Indwelling Catheter: Accurate Measurement of Urinary Output in Critically Ill Patients Urinary Catheter Date of Insertion: 04/08/20 Urinary Catheter Time of Insertion: 07:30 Data : 04/13/20 04:54 04/13/20 04:54 A&P Assessment and plan (1) Status post coronary artery bypass with autogenous graft, three grafts: Postop day #5 status post CABG. Continues to improve. Pacing wires and wound VAC dressing removed. Plan: Transfer to intermediate care. Resume home Coumadin dosing schedule. PT/INR in a.m. Physical therapy to evaluate to determine safety for discharge to home versus [facility] care. I have discussed this with Mr. Sheffield, and he is agreeable to SNF if recommended. I greatly appreciate oversight of Dr. Urban over the weekend and of our cardiology colleagues. Status: Acute Attestations Medical Necessity Statement*: Postop day #5 status post CABG Time Spent in Patient Care: 16 - 35 minutes Coding Level of Care Code Acute Sciences Dean for Chg Fwd Diagnoses Status post coronary artery bypass with autogenous graft, three grafts Z95.1
--- NOTE | 2020-04-13 06:50 | PC.NURSE ---
Report received from Erasto Nguyen. Pt had a good night. Dr Rodas came through this am, pulled pacemaker wires and wound vac. [place] dressing to chest now. He remains in A-fib. His metoprolol was restarted. He can transfer to [facility] today, orders in. He needs to wear his right shoe when he walks as that leg is shorter than the left. Upon transfer to [facility], let them know to anaie check the Coumadin orders, it should be as he takes it at home
--- NOTE | 2020-04-13 07:52 | P.PN_ITS ---
Subjective Subjective: Interval history: He was transferred out of unit. He had bowel movement. Doing well with PT. Medications: Reviewed: Yes Medication Review Details: Current Medications Aspirin (Aspirin Ec) 81 mg PO DAILY [facility] Last Admin: 04/13/20 09:06 Dose: 81 mg Documented by: Atorvastatin Calcium (Lipitor) 20 mg PO BEDTIME [facility] Last Admin: 04/13/20 05:12 Dose: 20 mg Documented by: Chlorhexidine Gluconate (Perigard) 15 ml MUCOUS MEM BID [facility] Last Admin: 04/13/20 17:38 Dose: 15 ml Documented by: Epinephrine (Vaponephrine) 0.5 ml INHALATION Q6H.RESPIRATORY PRN PRN Reason: Stridor Metoprolol Tartrate (Lopressor) 12.5 mg PO BID [facility] Last Admin: 04/13/20 17:38 Dose: 12.5 mg Documented by: Mupirocin (Bactroban) 1 applic NASAL BID [facility] Last Admin: 04/13/20 17:39 Dose: Not Given Documented by: Naloxone HCl (Narcan) 0.1 mg IVP Q2M PRN PRN Reason: OPIATERV Ondansetron HCl (Zofran) 4 mg IVP Q6H PRN PRN Reason: NAUSEA Last Admin: 04/11/20 08:54 Dose: 4 mg Documented by: Polyethylene Glycol (Miralax) 17 gm PO DAILY [facility] Last Admin: 04/13/20 09:06 Dose: 17 gm Documented by: Warfarin Sodium (Coumadin) 6 mg PO Th@1400 [facility] Warfarin Sodium (Coumadin) 5 mg PO SuMoTuWeFrSa@1400 [facility] Last Admin: 04/13/20 13:33 Dose: 5 mg Documented by: Vitals/I&O/Wt Last Vital Signs Temp 98.5 F 04/12/20 18:30 Pulse 80 04/13/20 06:30 Resp 23 H 04/13/20 06:30 BP 141/90 04/13/20 06:30 Pulse Ox 93 04/13/20 06:30 04/12/20 04/13/20 04/13/20 22:59 06:59 14:59 Intake Total 180 / 270 Output Total 850 / 1075 450 / 1525 Balance -670 / -805 -450 / -1255 Weight last 48 hrs Weight 178 lb 7 oz Weight 179 lb 11.2 oz Physical Exam Narrative: EXAM NARRATIVE: COMMON NORMALS: no acute distress, patient oriented x3 and alert GENERAL APPEARANCE: cooperative, comfortable, well kempt and well hydrated [place] COMMON NORMALS: hearing grossly normal bilaterally and external ears normal EXTERNAL EAR: Yes external ears normal Eye COMMON NORMALS: EOMs intact bilaterally and no scleral icterus GENERAL EYE: appearance normal, both eyes and all related structures Neck/C-Spine COMMON NORMALS: supple, No JVD GENERAL: Yes normal visual inspection CAROTIDS: Yes normal carotid upstroke Chest CHEST: Yes other (midline dressing from recent surgery) Resp EFFORT & INSPECTION: Yes symmetric chest movement AUSCULTATION: no crackles, no rales, no rhonchi, no wheezes and diminished lung sounds bilateral in the lower lung jackson Cardio COMMON NORMALS: no JVD appreciated, irregular, peripheral pulses 2+ throughout HEART SOUNDS: No murmur rubs or gallops appreciated PERIPHERAL PULSES: Peripheral pulses 2+ throughout, radial pulses present, posterior tibial pulses present and dorsalis pedis present Extremity GENERAL: Yes edema (trace-1+ bilateral, L>R ) and No pallor Neuro COMMON NORMALS: patient oriented x3 and no focal motor deficits SENSORIUM/ORIENTATION: Yes alert Psych COMMON NORMALS: Normal thought process present and speech normal SPEECH: Yes normal speech Urinary Catheter Management^: Coude: Cath Placed During This Visit: yes Reason for Continuing Indwelling Catheter: Accurate Measurement of Urinary Output in Critically Ill Patients Urinary Catheter Date of Insertion: 04/08/20 Urinary Catheter Time of Insertion: 07:30 Data : 04/13/20 04:54 04/13/20 04:54 A&P Assessment and plan (1) Status post coronary artery bypass with autogenous graft, three grafts: -Postop day #5; status post CABG x3 -continue ASA, statin . -Continue pulmonary toileting, Chest PT and incentive spirometry -Postop care as per Dr. Rodas. Status: Acute (2) Hypertension: Status: Acute Qualifiers: Hypertension type: essential hypertension Qualified Code(s): I10 - Essential (primary) hypertension (3) Hyperlipidemia: Status: Acute Qualifiers: Hyperlipidemia type: mixed hyperlipidemia Qualified Code(s): E78.2 - Mixed hyperlipidemia (4) Atrial fibrillation: Patient has gone back in atrial fibrillation and heart rate fairly controlled. -continue metoprolol 12.5 mg twice a day. -Continue to hold off on digoxin. -Restarted on home dose warfarin. Status: Acute Qualifiers: Atrial fibrillation type: longstanding persistent Qualified Code(s): I48.11 - Longstanding persistent atrial fibrillation Additional A&P Information NSVT: Has not had any NSVT's Leucocytosis: Patient continues to have leukocytosis, is trending down. Hyperkalemia-resolved Thank you for allowing me to participate in patient's care. Please feel free to call with questions or concerns. Attestations Medical Necessity Statement*: As per Dr. 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
[2020-04-13 07:58] LABS: Glucose Point of Care 88 mg/dL (70-110)
[2020-04-13] MEDS: aspirin 81 mg EC Tablet PO (09:06)
[2020-04-13] MEDS: polyethylene glycol 3350 Pkt 17 gm PO (09:06)
[2020-04-13] MEDS: metoprolol tartrate 25 mg Tablet 12.5 MG PO ×2 (09:06→17:38)
[2020-04-13] MEDS: mupirocin oint 22 gm 1 APPLIC NASAL (09:11)
[2020-04-13] MEDS: chlorhexidine gluconate 0.12% Btl 473 mL 15 ML MUCOUS MEM ×2 (09:11→17:38)
--- NOTE | 2020-04-13 09:25 | PC.SOCIAL ---
IMM Updated Updated pt on Pg 2 IMM. No questions voiced. Provided pt a copy. Signed, dated, & timed copy in chart.
[2020-04-13 11:50] LABS: Glucose Point of Care 96 mg/dL (70-110)
--- NOTE | 2020-04-13 13:27 | PC.NURSE ---
REport faxed and further verbal report given to YAAKOV Solorzano. All questions answered.
[2020-04-13] MEDS: warfarin 5 mg Tablet PO (13:33)
--- NOTE | 2020-04-13 13:56 | PC.NURSE ---
Pt transferred to [facility] via W/C. All belongings with pt.
--- NOTE | 2020-04-13 13:58 | PC.NURSE ---
Contacted family member, daughter in law Oumou and notified of move to 266. Also spoke at length about sternal precautions and chair/ toilet seat heights to assist Venkatesh in getting up.
[2020-04-14 03:21] VITALS: BP 130/86; PULSE 79; RESP 19; TEMP 36.6; O2SAT 92
[2020-04-14 05:08] LABS: Basophils % 0.3 %; Eosinophils # 0.2 10^3/uL (0.0-0.8); Eosinophils % 2.1 %; Hematocrit 40.6 % (42.0-52.0); Hemoglobin 13.2 g/dL (11.7-16.6); Lymphocytes # 0.8 10^3/uL (0.8-4.8); Lymphocytes % 8.3 %; Mean Corpuscular HGB Conc 32.5 g/dL (30.0-36.0); Mean Corpuscular Hemoglobin 29.3 pg (28.0-34.0); Mean Corpuscular Volume 90.2 fL (80-94); Mean Platelet Volume 10.7 fL (7.4-10.4); Monocytes # 0.9 10^3/uL (0.2-0.9); Monocytes % 9.2 %; Neutrophils % 79.5 %; Nucleated Red Blood Cells % 0 %; Platelet Count 237 10^3/cmm (130-400); Red Cell Distribution Width 14.1 % (12.1-15.1); White Blood Count 10.1 10^3/uL (4.0-10.0)
[2020-04-14 05:28] LABS: INR 1.38 (0.8-1.2)
[2020-04-14 05:40] LABS: Anion Gap 13.6 (5-19); Blood Urea Nitrogen 36 mg/dL (8-23); Calcium 8.5 mg/dL (8.5-10.5); Carbon Dioxide 23 mmol/L (22-29); Chloride 104 mmol/L (98-107); Glucose 93 mg/dL (65-115); Osmolality Calculated 281 mOsm/kg (285-295); Potassium 3.6 mmol/L (3.5-5.1); Sodium 137 mmol/L (136-145)
[2020-04-14 07:54] VITALS: BP 133/86; PULSE 80; RESP 16; TEMP 36.4; O2SAT 95
[2020-04-14] MEDS: chlorhexidine gluconate 0.12% Btl 473 mL 15 ML MUCOUS MEM (08:16)
[2020-04-14] MEDS: polyethylene glycol 3350 Pkt 17 gm PO (08:16)
[2020-04-14] MEDS: metoprolol tartrate 25 mg Tablet 12.5 MG PO (08:17)
[2020-04-14] MEDS: chlorhexidine gluconate 4% Btl 118 mL 1 APPLIC TOPICAL (08:17)
[2020-04-14] MEDS: aspirin 81 mg EC Tablet PO (08:17)
--- NOTE | 2020-04-14 08:42 | PM.DCS ---
Discharge Providers Date of Admission: 04/08/20 05:00 Date of Discharge: April 14, 2020 Attending Provider at Admission: Joseph Rodas MD Attending Provider at Discharge: Joseph Rodas MD Primary Care Provider: Luz Marina Guzmán MD Diagnoses at Discharge Discharge Diagnosis (1) Status post coronary artery bypass with autogenous graft, three grafts: Status: Acute (2) Hypertension: Status: Acute Qualifiers: Hypertension type: essential hypertension Qualified Code(s): I10 - Essential (primary) hypertension (3) Hyperlipidemia: Status: Acute Qualifiers: Hyperlipidemia type: mixed hyperlipidemia Qualified Code(s): E78.2 - Mixed hyperlipidemia (4) Atrial fibrillation: Status: Acute Qualifiers: Atrial fibrillation type: longstanding persistent Qualified Code(s): I48.11 - Longstanding persistent atrial fibrillation Reason for Visit Reason for Visit: cabg 02179/I25.810 Hospital Course Hospital Course: Mr. Sheffield is a 74-year-old gentleman with multisegment, multivessel coronary artery disease with been evaluated previously and underwent subtotal left heart catheterization by Dr. Puri revealing chronically occluded RCA, high-grade lesions of the proximal LAD and prominent diagonal as well as distal left main stenosis and circumflex disease. He had progressive symptomatology and underwent outpatient evaluation and surgery revascularization was recommended. He was electively admitted on April 08 underwent CABG x3. Postoperatively, he convalesced in the ICU. There was a bit of delay in extubation from the ventilator due to longstanding COPD. He underwent aggressive pulmonary toilet after extubation. He made slow and steady progress. He did have some arrhythmias with PVCs was treated with amiodarone. He has chronic A. fib, though he initially was in sinus rhythm immediately postop, as expected, he did revert back to A. fib. He is now been resumed on his chronic Coumadin dosing. He was also managed by Dr. Urban from our cardiology service as Dr. Puri was out. We have initiated low-dose beta-rahel. Wound VAC dressing was removed on the fifth postop day. Incision clean and dry. Sternum stable. Peripheral edema has resolved. Tolerating cardiac diet. Bowel and bladder function have returned. He will be discharged home today with home health services in stable condition. His daughter and son-in-law will be living with him at his home. At the time of discharge, he is in stable condition. Physical Exam Const: COMMON NORMALS: patient oriented x3 Chest: COMMONS NORMALS: normal inspection of the chest (Incision clean and dry. Sternum stable palpation. Drain sites well approximated.) and normal palpation of entire chest wall Resp: COMMON NORMALS: clear to auscultation bilaterally EFFORT & INSPECTION: Yes able to speak in complete sentences and Yes symmetric chest movement AUSCULTATION: clear to auscultation bilaterally Cardio: RHYTHM: abnormal rhythm (Chronic A. fib) irregularly irregular Extremity: GENERAL: Yes edema (Just a trace of peripheral edema remains, though markedly improved over the past 3 days.) Neuro: COMMON NORMALS: patient oriented x3, no focal motor deficits and no sensory deficits noted Urinary Catheter Management^: Coude: Cath Placed During This Visit: yes, but has since been removed by the nurse Reason for Continuing Indwelling Catheter: Decision to DC Catheter Urinary Catheter Date of Insertion: 04/08/20 Urinary Catheter Time of Insertion: 07:30 Date Urinary Catheter Removed: 04/13/20 Time Urinary Catheter Discontinued: 08:00 Discharge Data Data Completed and Pending: Completed Studies During Hospitalization Category Date Time Status XR chest 1V archie ble [id number] Routine Exams 04/08/20 13:04 Completed XR chest 1V archie ble [id number] Routine Exams 04/08/20 20:34 Completed XR chest 1V archie ble [id number] Routine Exams 04/09/20 06:00 Completed XR chest 1V archie ble [id number] Routine Exams 04/10/20 06:00 Completed XR chest 1V archie ble [id number] Routine Exams 04/11/20 06:00 Completed XR chest 1V archie ble [id number] Routine Exams 04/12/20 06:00 [place] [id number] Routi ne Ultrasound 04/01/20 11:00 Completed Pending at discharge Category Date Time Status Basic Metabolic P gabbi AM LABS Lab 04/15/20 04:00 Ordered Complete Blood Co unt w/Auto AM LABS Lab 04/15/20 04:00 Ordered Prothrombin Time INR AM LABS Lab 04/15/20 04:00 Ordered Prothrombin Time INR AM LABS Lab 04/15/20 04:00 Ordered Prothrombin Time INR AM LABS Lab 04/16/20 04:00 Ordered Prothrombin Time INR AM LABS Lab 04/17/20 04:00 Ordered Labs from last 24 hours 04/14/20 04/14/20 04/14/20 04:08 04:08 04:08 WBC 10.1 H RBC 4.50 Hgb 13.2 Hct 40.6 L MCV 90.2 MCH 29.3 MCHC 32.5 RDW 14.1 Plt Count 237 MPV 10.7 H Neut % (Auto) 79.5 Lymph % (Auto) 8.3 [place] % (Auto) 9.2 Eos % (Auto) 2.1 Baso % (Auto) 0.3 Neut # (Auto) 8.00 H Lymph # (Auto) 0.8 [place] # (Auto) 0.9 Eos # (Auto) 0.2 Baso # (Auto) 0.0 Nucleated RBC % (a uto) 0 Nucleated RBCs # 0.0 PT 17.50 H INR 1.38 H Sodium 137 Potassium 3.6 Chloride 104 Carbon Dioxide 23 Anion Gap 13.6 BUN 36 H Creatinine 0.9 GFR Calculation Not Reportable Glucose 93 POC Glucose Calculated Osmolal ity 281 L Calcium 8.5 04/13/20 11:46 WBC RBC Hgb Hct MCV MCH MCHC RDW Plt Count MPV Neut % (Auto) Lymph % (Auto) [place] % (Auto) Eos % (Auto) Baso % (Auto) Neut # (Auto) Lymph # (Auto) [place] # (Auto) Eos # (Auto) Baso # (Auto) Nucleated RBC % (a uto) Nucleated RBCs # PT INR Sodium Potassium Chloride Carbon Dioxide Anion Gap BUN Creatinine GFR Calculation Glucose POC Glucose 96 Calculated Osmolal ity Calcium Vitals: Last Vital Signs Temp 97.5 F L 04/14/20 07:54 Pulse 80 04/14/20 07:54 Resp 16 04/14/20 07:54 BP 133/86 04/14/20 07:54 Pulse Ox 95 04/14/20 07:54 Discharge Plan Discharge Patient Disposition: Home Health Service Condition: Stable Prescriptions: New aspirin 81 mg Tablet,Delayed Release (Dr/Ec) 81 mg PO DAILY Qty: 100 RF: 4 metoprolol tartrate 25 mg Tablet 12.5 mg PO BID Qty: 60 RF: 4 [place] 5-325 mg tablet 1 tab PO Q6H 7 Days Qty: 28 RF: 0 Continued nitroglycerin [Nitrostat] 0.4 mg tablet, sublingual 0.4 mg SUBLINGUAL Q5M PRN (Reason: Chest Pain) RF: 0 Metamucil 3.4 gram/5.4 gram powder 2 tbsp PO DAILY RF: 0 losartan 100 mg tablet 100 mg PO DAILY Qty: 90 RF: 3 simvastatin 40 mg tablet 40 mg PO DAILY Qty: 90 RF: 3 warfarin 5 mg Tablet See Rx Instructions .ROUTE .COMPLEX RF: 0 Hold Instructions: Resume on 03/12/20. warfarin 6 mg Tablet See Rx Instructions .ROUTE .COMPLEX RF: 0 Hold Instructions: Resume on 03/12/20. Discontinued isosorbide mononitrate 120 mg tablet extended release 24 hr 120 mg PO DAILY 30 Days Qty: 30 RF: 5 hydralazine 50 mg tablet 50 mg PO TID Qty: 270 RF: 3 digoxin 125 mcg (0.125 mg) tablet 125 mcg PO DAILY Qty: 90 RF: 3 Discharge Orders: Discharge Order (Routine); Ordered 04/14/20 Ordered By: Joseph Rodas Referrals: [facility] [Outside] Joseph Rodas MD [Physician] - 04/23/20 12:00 pm Discharge Diet: Cardiac Discharge Activity: Limit activity as instructed Patient Instructions: Hypercholesteremia, Metoprolol (By mouth), Hydrocodone/Acetaminophen (By mouth), Aspirin (By mouth), Hypertension, Atrial Fibrillation (DC), Coronary Artery Bypass Graft (DC) Activity Restrictions/Additional Instructions: No lifting, pulling, or pushing with arms greater than 5 pounds for next six weeks. May shower daily. No swimming or tub baths for next 3 weeks. Report fever, increased pain, drainage, redness of incision. Discharge Attestations Time Spent in Discharge Care*: less than 30 min Specific Discharge Activities: Specific discharge activities: educating patient, discussing with pcp/other providers, discussing with senior case manager/social workers/dc planners, documenting/other paperwork and evaluating patient/reviewing data Status at Discharge: Cognitive status at discharge: cognitively intact, Behavioral status at discharge: cooperative, Overall status at discharge: patient is progressing back to baseline Quality Metrics Clinical Quality Measures During this hospital stay, did patient experience: None Coding Level of Care Code Acute Demolition Specialist for Mikki Fwmaria guadalupe Diagnoses Status post coronary artery bypass with autogenous graft, three grafts Z95.1 Hypertension I10 Hypertension type: essential hypertension Hyperlipidemia E78.2 Hyperlipidemia type: mixed hyperlipidemia Atrial fibrillation I48.11 Atrial fibrillation type: longstanding persistent
[2020-04-14 12:00] VITALS: BP 119/80; PULSE 75; RESP 16; TEMP 36.5; O2SAT 95
--- NOTE | 2020-04-14 12:48 | PC.NURSE ---
Provided discharge instructions to patient, verbalized understanding. Denies further questions or concerns.
--- NOTE | 2020-04-14 13:04 | PM.PN ---
Subjective Subjective: Interval history: He is doing well and is eager to go home. Medications: Reviewed: Yes Medication Review Details: Current Medications Aspirin (Aspirin Ec) 81 mg PO DAILY [facility] Last Admin: 04/14/20 08:17 Dose: 81 mg Documented by: Atorvastatin Calcium (Lipitor) 20 mg PO BEDTIME [facility] Last Admin: 04/13/20 20:56 Dose: 20 mg Documented by: Chlorhexidine Gluconate (Perigard) 15 ml MUCOUS MEM BID [facility] Last Admin: 04/14/20 08:16 Dose: 15 ml Documented by: Chlorhexidine Gluconate (Betasept) 1 applic TOPICAL DAILY [facility] Last Admin: 04/14/20 08:17 Dose: 1 applic Documented by: Epinephrine (Vaponephrine) 0.5 ml INHALATION Q6H.RESPIRATORY PRN PRN Reason: Stridor Metoprolol Tartrate (Lopressor) 12.5 mg PO BID [facility] Last Admin: 04/14/20 08:17 Dose: 12.5 mg Documented by: Mupirocin (Bactroban) 1 applic NASAL BID [facility] Last Admin: 04/14/20 08:18 Dose: Not Given Documented by: Naloxone HCl (Narcan) 0.1 mg IVP Q2M PRN PRN Reason: OPIATERV Ondansetron HCl (Zofran) 4 mg IVP Q6H PRN PRN Reason: NAUSEA Last Admin: 04/11/20 08:54 Dose: 4 mg Documented by: Polyethylene Glycol (Miralax) 17 gm PO DAILY [facility] Last Admin: 04/14/20 08:16 Dose: 17 gm Documented by: Warfarin Sodium (Coumadin) 6 mg PO Th@1400 [facility] Warfarin Sodium (Coumadin) 5 mg PO SuMoTuWeFrSa@1400 [facility] Last Admin: 04/13/20 13:33 Dose: 5 mg Documented by: Vitals/I&O/Wt Last Vital Signs Temp 97.7 F 04/14/20 12:00 Pulse 75 04/14/20 12:00 Resp 16 04/14/20 12:00 BP 119/80 04/14/20 12:00 Pulse Ox 95 04/14/20 12:00 04/13/20 04/14/20 04/14/20 22:59 06:59 14:59 Intake Total 240 / 490 1800 / 2290 360 / 360 Output Total 100 / 175 350 / 525 Balance 140 / 315 1450 / 1765 360 / 360 Weight last 48 hrs Weight 203 lb Weight 178 lb 7 oz Physical Exam Narrative: EXAM NARRATIVE: EXAM NARRATIVE: COMMON NORMALS: no acute distress, patient oriented x3 and alert GENERAL APPEARANCE: cooperative, comfortable, well kempt and well hydrated [place] COMMON NORMALS: hearing grossly normal bilaterally and external ears normal EXTERNAL EAR: Yes external ears normal Eye COMMON NORMALS: EOMs intact bilaterally and no scleral icterus GENERAL EYE: appearance normal, both eyes and all related structures Neck/C-Spine COMMON NORMALS: supple, No JVD GENERAL: Yes normal visual inspection CAROTIDS: Yes normal carotid upstroke Chest CHEST: Yes other (midline dressing from recent surgery) Resp EFFORT & INSPECTION: Yes symmetric chest movement AUSCULTATION: no crackles, no rales, no rhonchi, no wheezes and diminished lung sounds bilateral in the lower lung jackson Cardio COMMON NORMALS: no JVD appreciated, irregular, peripheral pulses 2+ throughout HEART SOUNDS: No murmur rubs or gallops appreciated PERIPHERAL PULSES: Peripheral pulses 2+ throughout, radial pulses present, posterior tibial pulses present and dorsalis pedis present Extremity GENERAL: Yes edema (trace-1+ bilateral, L>R ) and No pallor Neuro COMMON NORMALS: patient oriented x3 and no focal motor deficits SENSORIUM/ORIENTATION: Yes alert Psych COMMON NORMALS: Normal thought process present and speech normal SPEECH: Yes normal speech Urinary Catheter Management^: Coude: Cath Placed During This Visit: yes, but has since been removed by the nurse Reason for Continuing Indwelling Catheter: Decision to DC Catheter Urinary Catheter Date of Insertion: 04/08/20 Urinary Catheter Time of Insertion: 07:30 Date Urinary Catheter Removed: 04/13/20 Time Urinary Catheter Discontinued: 08:00 Data : 04/14/20 04:08 04/14/20 04:08 A&P Assessment and plan (1) Status post coronary artery bypass with autogenous graft, three grafts: -Postop day #6; status post CABG x3 -continue ASA, statin . -stable to be discharged. -f/u with Dr. Puri/la in 3-4 weeks. Status: Acute (2) Hypertension: Status: Acute Qualifiers: Hypertension type: essential hypertension Qualified Code(s): I10 - Essential (primary) hypertension (3) Hyperlipidemia: Status: Acute Qualifiers: Hyperlipidemia type: mixed hyperlipidemia Qualified Code(s): E78.2 - Mixed hyperlipidemia (4) Atrial fibrillation: Patient has gone back in atrial fibrillation and heart rate fairly controlled. -continue metoprolol 12.5 mg twice a day. -Continue to hold off on digoxin. -Restarted on home dose warfarin. Status: Acute Qualifiers: Atrial fibrillation type: longstanding persistent Qualified Code(s): I48.11 - Longstanding persistent atrial fibrillation Additional A&P Information NSVT: Has not had any NSVT's Leucocytosis: Patient continues to have leukocytosis, is trending down. Hyperkalemia-resolved Thank you for allowing me to participate in patient's care. Please feel free to call with questions or concerns. Attestations Medical Necessity Statement*: Stable to be discharged home. Coding Level of Care Code Acute Lithopress Operator for Mikki Fwd Diagnoses Status post coronary artery bypass with autogenous graft, three grafts Z95.1 Hypertension I10 Hypertension type: essential hypertension Hyperlipidemia E78.2 Hyperlipidemia type: mixed hyperlipidemia Atrial fibrillation I48.11 Atrial fibrillation type: longstanding persistent
[2020-04-14 13:34] VITALS: BP 119/80; PULSE 75; RESP 16; TEMP 36.5; O2SAT 95
--- NOTE | 2020-04-14 13:35 | PC.NURSE ---
Faxed SB[facility] to [facility]
== END 2020-04-14 13:35 | disposition home health service (06) | DRG 236 ==
LOC: ICU 04-10 15:13 → MEDSURG 04-13 14:05
PROVIDERS: Internal Medicine Cardiovascular Disease; Admitting Provider Thoracic Surgery (Cardiothoracic Vascular Surgery); PCP Internal Medicine; Visit Provider Thoracic Surgery (Cardiothoracic Vascular Surgery)
PROC: 0211093 Bypass Coronary Artery, Two Arteries from Coronary Artery with Autologous Venous Tissue, Open Approach (ICD-10-PCS; principal; 2020-04-08 07:00)
DX: I25.10 Atherosclerotic heart disease of native coronary artery without angina pectoris (principal); I47.2 Ventricular tachycardia; I48.11 Longstanding persistent atrial fibrillation; I10 Essential (primary) hypertension; E78.2 Mixed hyperlipidemia; J44.9 Chronic obstructive pulmonary disease, unspecified; Z79.01 Long term (current) use of anticoagulants; I25.2 Old myocardial infarction; K21.9 Gastro-esophageal reflux disease without esophagitis; M19.90 Unspecified osteoarthritis, unspecified site; Z87.891 Personal history of nicotine dependence
CPT/HCPCS: 12345; 36415; 36416; 36592; 36600; 51702; 71045; 80048; 80051; 80061; 80076; 81003; 82803; 82810; 82947; 82962; 83735; 83986; 84439; 84443; 85025; 85347; 85610; 85730; 86850; 86900; 86920; 87070; 87205; 87635; 93005; 93970; 94002; 94003; 94640; 94660; 94799; 96365; 96375; 97110; 97116; 97161; 97167; 97530; 97535; C9113; J0171; J0282; J0697; J1250; J1644; J1815; J1940; J2001; J2150; J2250; J2270; J2370; J2405; J2440; J2704; J2720; J3010; J3370; J3475; J3480; J3490; J7030; J7040; J7050; J7060; P9016; P9041; P9047

== ENCOUNTER → 2020-04-30 14:04 | Outpatient (BNVA) | payer MEDICARE, SELFPAY | PROVIDERS: PCP Internal Medicine; Visit Provider Thoracic Surgery (Cardiothoracic Vascular Surgery) | DX: Z95.1 Presence of aortocoronary bypass graft (principal); I48.11 Longstanding persistent atrial fibrillation; Z87.891 Personal history of nicotine dependence; Z48.812 Encounter for surgical aftercare following surgery on the circulatory system | CPT/HCPCS: 80048; 85025 ==

== ENCOUNTER → 2020-05-21 10:15 | Outpatient (BNVA) | payer MEDICARE, SELFPAY | PROVIDERS: PCP Internal Medicine; Visit Provider Internal Medicine Cardiovascular Disease | DX: I10 Essential (primary) hypertension (principal); I25.10 Atherosclerotic heart disease of native coronary artery without angina pectoris; I48.11 Longstanding persistent atrial fibrillation; Z95.1 Presence of aortocoronary bypass graft | CPT/HCPCS: 80048; 83880 ==

== ENCOUNTER → 2021-01-06 14:40 | Outpatient (BNVA) | payer MEDICARE, SELFPAY | PROVIDERS: PCP Internal Medicine; Visit Provider Internal Medicine Cardiovascular Disease | DX: R06.02 Shortness of breath (principal); R06.09 Other forms of dyspnea; R07.89 Other chest pain; I25.10 Atherosclerotic heart disease of native coronary artery without angina pectoris; R07.9 Chest pain, unspecified; M79.89 Other specified soft tissue disorders | CPT/HCPCS: 80048; 83880 ==

== ENCOUNTER 2021-01-18 08:54 | Outpatient (CLI) | payer MEDICARE, SELFPAY ==
--- NOTE | 2021-01-18 09:06 | USCV_ITS ---
Willis Sheffield Age: 75 Gender: M : 1945 Exam Date: 01/18/2021 09:56 Ordering Phys: Calixto Puri MD ([email or web address]) Technologist: Dewayne Salinas [place] [facility] [place]ication: LT PAIN AND EDEMA HISTORY: Lower extremity edema. Lower extremity pain. PROCEDURES: Venous duplex imaging was performed in only the left lower extremity. The following venous structures were evaluated: common femoral vein, profunda vein, proximal portion of the greater saphenous vein, superficial femoral vein, and the popliteal vein. In addition, the posterior tibial and peroneal trunk were evaluated. On the left side, the common femoral, superficial femoral, profunda femoral, popliteal, posterior tibial, greater saphenous veins, and the peroneal trunk were identified and interrogated in the standard fashion. These veins were found to be easily compressible with spontaneous blood flow. No evidence of insufficiency or thrombus noted. FINDINGS: Normal 2-D Doppler and augmentation and compressibility throughout the lower extremity venous structures. Additional imaging through the proximal calf veins also reveals no thrombus. Limited evaluation of the greater saphenous vein is patent with no thrombus.. CONCLUSIONS No evidence of DVT in the above-mentioned identifiable veins. No evidence of thrombosis in the visualized segment of the greater saphenous vein Dr Calixto Puri MD [facility] (Electronically Signed) Final Date: 19 Jan 2021 22:45 S
== END 2021-01-18 08:55 | disposition home or self-care (01) ==
LOC: RAD 09:01
PROVIDERS: PCP Internal Medicine; Visit Provider Internal Medicine Cardiovascular Disease
DX: R07.89 Other chest pain (principal); M79.662 Pain in left lower leg; R60.9 Edema, unspecified
CPT/HCPCS: 80048; 83880; 93971

== ENCOUNTER 2021-02-09 08:33 | Outpatient (CLI) | payer MEDICARE, SELFPAY ==
--- NOTE | 2021-02-09 09:15 | MR_ITS ---
WS: [id number] MRI LUMBAR SPINE NONCONTRAST HISTORY: DEGENERATIVE DISC DISEASE W RADICULOPATHY LUMBOSACRAL SPINE COMPARISON: None available. TECHNIQUE: Sagittal and axial multisequence imaging is submitted. Increase in cervical lordosis and marked increase in thoracic kyphosis. Multilevel areas of cord encr oachment throughout the cervical and thoracic spine due to facet disease and disc disease and scolios is. Severe LEFT curvature lumbar spine with increase in the lordosis. Severe degenerative disc disease. L4 anterolisthesis by 17 mm. L4 vertebral body invaginates into th e superior endplate of L5. There is severe disc space narrowing and desiccation throughout the lumbar spine. Conus terminates normally at L1. L1-L2: Diffuse annular disc bulging and osteophytic ridging. Central disc protrusion. Thecal sac is a symmetric and to the RIGHT due to the scoliosis. Central and moderate to severe RIGHT foraminal sten osis and mild LEFT foraminal stenosis. Disc contacts the L1 and L2 nerve root on the RIGHT. L2-L3: Diffuse asymmetric disc bulging with facet and ligamentum flavum disease and osteophytic ridgi ng. Mild central stenosis with encroachment into the lateral recesses bilaterally. Moderate bilateral subarticular recess and foraminal stenosis. L3-L4: Diffuse severe osteophytic ridging and disc bulging with moderate central with severe bilatera l subarticular recess and foraminal stenosis. Prior posterior laminectomy defect. L4-L5: Severe central, bilateral subarticular recess and foraminal stenosis. There is complete efface ment of CSF. Bilateral laminectomy defects with bony bridging across the laminectomy site. L5-S1: Severe bilateral facet joint arthritis encroaching into the central canal. Mild central stenos is. Osteophyte encroachment upon the LEFT S1 nerve root. Severe LEFT foraminal and subarticular reces s stenosis and mild on the RIGHT. Small layering LEFT pleural effusion. MR/MR lumbar spine wo con* [id number] IMPRESSION: 1. Severe multilevel stenoses throughout the lumbar spine involving the centra l canal, facets and foramina. 2. Severe central, bilateral subarticular recess and foraminal stenosis at L4- 5. 3. Severe LEFT foraminal and subarticular recess stenosis at L5-S1. 4. Moderate bilateral subarticular recess and foraminal stenosis at L2-3. 5. Moderate central with severe bilateral subarticular recess and foraminal st enosis at L3-4. 6. Grade 2 L4 anterolisthesis. 7. Small LEFT pleural effusion. 8. Severe increase in lumbar lordosis and LEFT gliosis.
== END 2021-02-09 08:34 | disposition home or self-care (01) ==
LOC: RADSHAW 08:36
PROVIDERS: PCP Internal Medicine; Visit Provider Internal Medicine
DX: M51.17 Intervertebral disc disorders with radiculopathy, lumbosacral region (principal); M40.46 Postural lordosis, lumbar region; G95.89 Other specified diseases of spinal cord; J90 Pleural effusion, not elsewhere classified; M48.061 Spinal stenosis, lumbar region without neurogenic claudication; M48.07 Spinal stenosis, lumbosacral region
CPT/HCPCS: 72148

== ENCOUNTER 2021-11-22 15:52 | Outpatient (CLI) | payer MEDICARE, SELFPAY ==
--- NOTE | 2021-11-22 16:13 | XR_ITS ---
WS: [id number] CHEST 2 VIEWS HISTORY: DYSPNEA WITH EXERTION COMPARISON: 04/12/2020 Lungs: Clear with no abnormality. No pleural effusion or pneumothorax. Cardiac size: Status post CABG. Moderate enlargement the cardiac silhouette, similar to the prior exa m. Mediastinum/Aorta: Moderate atherosclerotic changes within the aorta. Calcified lymph nodes. Bones: High riding humeral heads. AC joint arthritis. Thoracolumbar scoliosis. Advanced degenerative changes throughout the thoracolumbar spine. XR/XR chest 2V* [id number] IMPRESSION: 1. Status post CABG and moderate cardiomegaly. 2. No pneumonia.
== END 2021-11-22 15:53 | disposition home or self-care (01) ==
PROVIDERS: PCP Internal Medicine; Visit Provider Internal Medicine
DX: R06.09 Other forms of dyspnea (principal); Z95.1 Presence of aortocoronary bypass graft; I51.7 Cardiomegaly
CPT/HCPCS: 71046

== ENCOUNTER → 2021-11-26 09:46 | Outpatient (BNVA) | payer MEDICARE, SELFPAY | PROVIDERS: PCP Internal Medicine; Visit Provider Internal Medicine Cardiovascular Disease | DX: Z79.01 Long term (current) use of anticoagulants (principal) ==

== ENCOUNTER → 2021-11-30 12:19 | Outpatient (BNVA) | payer MEDICARE, SELFPAY | PROVIDERS: PCP Internal Medicine; Visit Provider Internal Medicine Cardiovascular Disease | DX: Z79.01 Long term (current) use of anticoagulants (principal) ==

== ENCOUNTER → 2021-12-01 13:27 | Outpatient (BNVA) | payer MEDICARE, SELFPAY | PROVIDERS: PCP Internal Medicine; Visit Provider Internal Medicine Cardiovascular Disease | DX: I48.91 Unspecified atrial fibrillation (principal) | CPT/HCPCS: 93270 ==

== ENCOUNTER → 2021-12-06 14:28 | Outpatient (BNVA) | payer MEDICARE, SELFPAY | PROVIDERS: PCP Internal Medicine; Visit Provider Internal Medicine Cardiovascular Disease | DX: Z79.01 Long term (current) use of anticoagulants (principal) ==

== ENCOUNTER → 2021-12-14 08:51 | Outpatient (BNVA) | payer MEDICARE, SELFPAY | PROVIDERS: PCP Internal Medicine; Visit Provider Internal Medicine Cardiovascular Disease | DX: I48.11 Longstanding persistent atrial fibrillation (principal); Z79.01 Long term (current) use of anticoagulants ==

== ENCOUNTER → 2021-12-24 08:26 | Outpatient (BNVA) | payer MEDICARE, SELFPAY | PROVIDERS: PCP Internal Medicine; Visit Provider Internal Medicine Cardiovascular Disease | DX: Z79.01 Long term (current) use of anticoagulants (principal) ==

== ENCOUNTER → 2021-12-31 10:43 | Outpatient (BNVA) | payer MEDICARE, SELFPAY | PROVIDERS: PCP Internal Medicine; Visit Provider Internal Medicine Cardiovascular Disease | DX: Z79.01 Long term (current) use of anticoagulants (principal) ==

== ENCOUNTER → 2022-01-03 15:57 | Outpatient (BNVA) | payer MEDICARE, SELFPAY | PROVIDERS: PCP Internal Medicine; Visit Provider Internal Medicine Cardiovascular Disease | DX: Z79.01 Long term (current) use of anticoagulants (principal) ==

== ENCOUNTER → 2022-01-11 12:29 | Outpatient (BNVA) | payer MEDICARE, SELFPAY | PROVIDERS: PCP Internal Medicine; Visit Provider Internal Medicine Cardiovascular Disease | DX: Z79.01 Long term (current) use of anticoagulants (principal) ==

== ENCOUNTER → 2022-01-19 12:46 | Outpatient (BNVA) | payer MEDICARE, SELFPAY | PROVIDERS: PCP Internal Medicine; Visit Provider Internal Medicine Cardiovascular Disease | DX: Z79.01 Long term (current) use of anticoagulants (principal) ==

== ENCOUNTER → 2022-01-27 12:35 | Outpatient (BNVA) | payer MEDICARE, SELFPAY | PROVIDERS: PCP Internal Medicine; Visit Provider Internal Medicine Cardiovascular Disease | DX: Z79.01 Long term (current) use of anticoagulants (principal) ==

== ENCOUNTER → 2022-02-01 13:43 | Outpatient (BNVA) | payer MEDICARE, SELFPAY | PROVIDERS: PCP Internal Medicine; Visit Provider Internal Medicine Cardiovascular Disease | DX: Z79.01 Long term (current) use of anticoagulants (principal) ==

== ENCOUNTER → 2022-02-10 15:04 | Outpatient (BNVA) | payer MEDICARE, SELFPAY | PROVIDERS: PCP Internal Medicine; Visit Provider Internal Medicine Cardiovascular Disease | DX: Z79.01 Long term (current) use of anticoagulants (principal) ==

== ENCOUNTER → 2022-02-23 08:03 | Outpatient (BNVA) | payer MEDICARE, SELFPAY | PROVIDERS: PCP Internal Medicine; Visit Provider Internal Medicine Cardiovascular Disease | DX: Z79.01 Long term (current) use of anticoagulants (principal) ==

== ENCOUNTER → 2022-03-02 09:43 | Outpatient (BNVA) | payer MEDICARE, SELFPAY | PROVIDERS: PCP Internal Medicine; Visit Provider Internal Medicine Cardiovascular Disease | DX: Z79.01 Long term (current) use of anticoagulants (principal) ==

== ENCOUNTER → 2022-03-09 16:37 | Outpatient (BNVA) | payer MEDICARE, SELFPAY | PROVIDERS: PCP Internal Medicine; Visit Provider Internal Medicine Cardiovascular Disease | DX: Z79.01 Long term (current) use of anticoagulants (principal) ==

== ENCOUNTER → 2022-03-17 10:34 | Outpatient (BNVA) | payer MEDICARE, SELFPAY | PROVIDERS: PCP Internal Medicine; Visit Provider Internal Medicine Cardiovascular Disease | DX: Z79.01 Long term (current) use of anticoagulants (principal) ==

== ENCOUNTER → 2022-03-25 10:27 | Outpatient (BNVA) | payer MEDICARE, SELFPAY | PROVIDERS: PCP Internal Medicine; Visit Provider Internal Medicine Cardiovascular Disease | DX: Z79.01 Long term (current) use of anticoagulants (principal) ==

== ENCOUNTER → 2022-04-01 13:16 | Outpatient (BNVA) | payer MEDICARE, SELFPAY | PROVIDERS: PCP Internal Medicine; Visit Provider Internal Medicine Cardiovascular Disease | DX: Z79.01 Long term (current) use of anticoagulants (principal) ==

== ENCOUNTER → 2022-04-07 10:12 | Outpatient (BNVA) | payer MEDICARE, SELFPAY | PROVIDERS: PCP Internal Medicine; Visit Provider Internal Medicine Cardiovascular Disease | DX: Z79.01 Long term (current) use of anticoagulants (principal) ==

== ENCOUNTER → 2022-04-12 10:30 | Outpatient (BNVA) | payer MEDICARE, SELFPAY | PROVIDERS: PCP Internal Medicine; Visit Provider Internal Medicine Cardiovascular Disease | DX: Z79.01 Long term (current) use of anticoagulants (principal) ==

== ENCOUNTER 2022-05-26 06:47 | Outpatient (CLI) | payer MEDICARE, SELFPAY ==
--- NOTE | 2022-05-26 07:46 | PFTS_ITS ---
Date of Study:05/26/22 Date of Dictation: MECHANICS: Forced vital capacity (FVC) is . Forced expiratory volume in one second (FEV1) is . FEV1/FVC is . FLOW VOLUME LOOP: . LUNG VOLUMES: Total lung capacity (TLC) is . Residual volume (RV) is . DIFFUSING CAPACITY FOR CARBON MONOXIDE: . INTERPRETATION: The pulmonary function tests are . mechanics and lung volumes. Gas exchange (DLCO) is . MTDD
== END 2022-05-26 06:48 | disposition home or self-care (01) ==
LOC: RT 06:47
PROVIDERS: PCP Internal Medicine; Visit Provider Internal Medicine
DX: R06.09 Other forms of dyspnea (principal)
CPT/HCPCS: 94060; 94726; 94729; J7611